=== PATIENT | female | born 1990 | race Caucasian/White ===

== ENCOUNTER 2021-10-20 07:55 | Outpatient (CLI) | payer OTHER, SELFPAY ==
[2021-10-20 10:25] LABS: Cholesterol* 104 mg/dL (90-199); HDL Cholesterol* 23 mg/dL (>=50); LDL Cholesterol Calculated 47 mg/dL (<100); Triglycerides* 171 mg/dL (40-149)
== END 2021-10-20 07:56 | disposition home or self-care (01) ==
LOC: NFLDREF 08:15
PROVIDERS: PCP Family Medicine; Visit Provider Family Medicine
DX: Z13.6 Encounter for screening for cardiovascular disorders (principal)
CPT/HCPCS: 80061

== ENCOUNTER 2024-08-06 18:53 | Emergency (ER) | payer MEDICAID, SELFPAY ==
[2024-08-06 18:59] VITALS: BP 136/87; PULSE 110; RESP 20; TEMP 37; O2SAT 97; BMI 35.7
--- OUTSIDE RECORDS SUMMARY | 2024-08-06 19:01 | XMS_ITS | Clinical Summary ---
Author Organization [facility] [place] [facility] Address [address] [place] [id number] Care Team Providers Care Beam Warper Name Role Phone Patrick Manjarrez MD Unavailable [phone] Stephy Sanderson RN Unavailable [phone] Unavailable [phone] Pcp, No Primary Care Provider Unavailabl e Allergies Active Allergy Reactions Criticality Noted Date Comments Adhesive Tape-Silicones Hives 03/28/2021 once only Cephalexin Hives High 05/02/2020 Clindamycin Hives 04/12/2010 Nsaids (Non-Steroidal Anti-Inflammatory Drug) Other - Describe In Comment Field 02/09/2022 This patient has a history of a Junior-en-Y gastric bypass. AVOID NSAIDs and aspirin due to risk of gastric and/or G-J anastomotic ulcers. If Sandrine must be on short course of NSAIDs or aspirin, use enteric coated if possible and use PPI // Betty Alvarado RN, Bariatric Nurse Clinician, [facility] 02/12/2022. Penicillins Hives 05/27/2005 Medications multivitamin pediatric chewable tabletIndicatio ns:S/P gastric bypass Chew 1 Tablet by mouth two times daily. 0 02/16/2022 Active cyanocobalamin (VITAMIN B12) 1,000 mcg sublingual tabletIndicatio ns:S/P gastric bypass Place 1 Tablet (1,000 mcg) under the tongue once daily. Active calcium citrate-vitamin D3, 315 mg-250 units, (CITRACAL WITH VITAMIN D) 315 mg-6.25 mcg (250 unit) tab tablet Take 2 Tablets by mouth two times daily with meals. 0 03/13/2022 Active cholecalciferol , Vitamin D3, (Vitamin D-3) 5,000 unit tab tablet Take 1 Tablet (5,000 units) by mouth once daily. 0 03/13/2022 Active Active Problems Problem Noted Date Diagnosed Date S/P robotic gastric bypass by Dr. Manjarrez 2 Overview (02/06/2022): Weight 307, BMI 46 Morbid obesity 02/06/2022 Vaginal delivery 10/18/2014 Obesity in , antepartum 10/12/2014 Body mass index of 60 or higher 03/11/2014 Overview (09/28/2014): Overview: BMI 44.8- one hour glucose done Anal fissure 03/28/2012 Leucopenia 12/08/2011 Thrombocytopenia 12/08/2011 GERD (gastroesophageal reflux disease) 0 Insulin resistance 04/01/2009 Neoplasm of uncertain behavior of skin 0 Overview (04/01/2009): lesion on her right shoulder that is slightly less than 1 cm in diameter, light brown in color and scaly feeling. Myopia 04/01/2009 Astigmatism 04/01/2009 Body mass index, pediatric, 85th percentile to less than 95th percentile for age 0911/19/2008 Resolved Problems Problem Noted Date Diagnosed Date Resolved Date , subsequent 09/22/20142014 Overview (10/04/2014): , planned Transfer of care at 36 weeks SS and QS declined BMI 47 History of iron deficiency anemia 2004 Records requested from [facility] [place] 09/22/14 PNL: A neg; Ab neg; Rhogam: 07/29/14; HIV: neg, Hep B: neg, RPR: negative; Rubella Immune; hgb 11.9; plts: 153,000; urine culture: negative; GCT: 135 S/p Tdap 07/29/14 GBS culture 09/27/14: positive; langley sensitive Encounter for screening of mother 03/11/2014 12/01/2014 Overview (09/28/2014): Overview: 03/11/2014 Antepartum Risk Profile: Labor Factors: none. Workplace Factors: none identified. Nutrition Factors: none. Infectious Disease Factors: none identified. Normal , incidental 03/11/2014 09/28/2014 Overview (09/28/2014): Overview: First trimester screening reviewed, patient declined consent at [facility]. Declined flu vaccine Elevated BMI 41.8- one hour GCT done today Had gallbladder removed Cholelithiasis 12/08/2011 03/27/2012 Obstructive jaundice 12/08/2011 013 Gall stones, common bile duct 12/08/2011 03/27/2012 Drug overdose 11/10/2011 03/27/2012 Normal delivery 12/03/2010 03/27/2012 Medical Home 04/17/2010 03/27/2012 Supervision of normal first 04/12/2010 12/03/2010 wound of oral cavity 02/04/2010 013 Muscle contraction headache 04/01/2009 03/27/2012 Cervicalgia 04/01/2009 03/27/2012 SALTER II FRACTURE RT.ANKLE, CLOSED 10/23/2005 03/27/2012 Anemia, iron deficiency 03/05 Immunizations Immunization Administration Dates Next Due DTaP 05/24/1997,10/26/1994,09/01/1993 ,1992 HIB PRP-OMP (PedvaxHIB) 10/26/1994,09/01/1993, Hepatitis A (Peds) 11/19/2008 Hepatitis B (Peds) 12/20/2004,11/05/1995, 996 Human Papilloma Virus Vaccine 08/19/2007, 007,04/19/2006 Influenza, IIV3 (Age >=3 years) 11/21/19 12,12/07/2010,12/05/2009,11/19/2008, 01/08/2008,01/16/2007,04/19/2006 MMR 12/05/2010,05/08/2000,10/26/1994 Meningococcal Vaccine 12/20/2004 Oral Polio Vaccine 05/24/1997,10/26/1994, 993 Tdap 04/28/2018,07/29/2014,12/20/2004 Varicella Vaccine 04/19/2006,10/26/1994 Family History Medical History Relation Name Comments Allergies Brother 1 Asthma Brother 1 Good Health Brother 1 Asthma Brother 2 Good Health Brother 2 Alcohol/Drug Father currently sober Obesity Father Heart Disease Maternal Grandfather 5 5 years old Hyperlipidemia Maternal Grandfather Hypertension Maternal Grandfather Cancer Maternal Grandmother d CA with mets Good Health Mother Obesity Mother Alcohol/Drug Paternal Grandfather liver f ailure Good Health Paternal Grandmother Asthma Sister 1 Good Health Sister 1 Obesity Sister 1 Good Health Sister 2 Good Health Son 1 Relation Name Status Comments Brother 1 Brother 2 Father Alive Maternal Grandfather Maternal Grandmother Mother Alive Paternal Grandfather Paternal Grandmother Alive Sister 1 Sister 2 Son 1 Alive Social History Tobacco Use Types Packs/Day Years Used Date Smoking Tobacco: Never Smokeless Tobacco: Never Tobacco Cessation:Counseling Given: Not Answered Comments:no smoker Alcohol Use Standard Drinks/Week Comments No 0 (1 standard drink = 0.6 oz pur e alcohol) PHQ-2 Answer Date Recorded PHQ-2 TOTAL SCORE 0 07/21/2021 Social Connections Answer Date Recorded Frequency of Communication with Friends and Fami ly Not on file 01/29/2022 Comments No Sex and Gender Information Value Date Recorded Sex Assigned at Not on file Legal Sex Female 5:29 AM COUNTER CHECKER Gender Identity Not on file Sexual Orientation Not on file 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 2014 Term 39w 3d 4.26 kg (9 lb 6.3 oz) M Vag Epidur al Livin g 8 9 Jose Dumer valdez Complications:None Delivery Location:[facility] Last Filed Vital Signs Vital Sign Reading Time Taken Comments Blood Pressure 166/80 02/10/2022 8:25 AM COUNTER CHECKER Pulse 82 02/10/2022 8:25 AM COUNTER CHECKER Temperature 36.7 C (98 F) 02/10/2022 8:25 AM COUNTER CHECKER Respiratory Rate 16 02/10/2022 8:25 AM COUNTER CHECKER Oxygen Saturation 96% 02/10/2022 8:25 AM COUNTER CHECKER Inhaled Oxygen Concentration - - Weight 120.7 kg (266 lb) 03/13/2022 10:00 AM COUNTER CHECKER Height 172.7 cm (5' 7.99) 03/13/2022 10:00 AM C Body Mass Index 40.45 03/13/2022 10:00 AM COUNTER CHECKER Plan of Treatment Health Maintenance Due Date Last Done Comments Pap test for age 21-65 11/12/2020 8, 04/12/2014 [facility] Depression screening for age 12+ 07/21/2022 07/21/2021, 06/29/2021, 05/22/2016 BMI (ht and wt on same day) for age 18+ 03/13/2023 03/13/2022, 02/16/2022, 01/29/2022, Additional history exists COVID-19 vaccine series ( season) 2023 06/09/2020, 05/10/2020 Influenza Vaccine (Season Ended) 2024 11/21/2011, 12/07/2010, 12/05/2009, Additional history exists Tetanus booster 04/28/2028 04/28/2018, 07/03, 12/20/2004 Hepatitis B series for 19+ Completed 12/20, 11/05/1995, 08/28/1995 HIV for age 15-65 Completed 11/21/2011, , 02/09/2009 Hepatitis C screening for age 18-79 Completed 12/08/2011, 02/09/2009 Tdap Completed 04/28/2018, 07/03, 12/20/2004 Pneumococcal series for age 6-49 Aged Out No longer eligible based on patient's age to complete this topic Procedures Procedure Name Priority Date/Time Associated Diagnosis Comments HAND BUNCH MAKER THIN PREP PAP SCREEN IMAGED Routine 11/12/2017 12:00 PM CDT ACUTE HEPATITIS PANEL STAT 12/08/2011 9:40 AM CDT ANTI HIV 1/2 Routine 11/21/2011 10:45 AM CDT Special screening for other specified conditions from Last 3 Months or Most Recently Relevant to Health Maintenance Results * HAND BUNCH MAKER THIN PREP PAP SCREEN IMAGED (11/12/2017 12:00 PM CDT) Case Report Gynecologic Cytology Report Case: [id number] Authorizing Provider: Caryn Barnes PA-C Collected: 11/12/2017 1200 First Screen: Johnny Vazquez Received: 11/14/2017 1215 Specimen: HAND BUNCH MAKER ThinPrep Vial Screening, Cervical/Vaginal 11/24/2017 2:00 PM [facility]T [facility] INTERPRETATION/ RESULT NEGATIVE FOR INTRAEPITHELIAL LESION OR MALIGNANCY (NIL) (none) 11/24/2017 2:00 PM CDT [facility] at 1400 CDT SPECIMEN ADEQUACY Satisfactory for evaluation No endocervical component seen in a patient 11/24/2017 2:00 PM CDT [facility] HPV REQUEST HPV if ASCUS 11/24/2017 2:00 PM CDT [facility] Date of LMP 09/11/2017 11/24/2017 2:00 PM CDT [facility] Last Pap Date 11/24/2017 2:00 PM CDT [facility] Comment:2013 Last Pap Result 8 2:00 PM CDT [facility] Comment:neg Menstrual Status 11/24/2017 2:00 PM CDT [facility] Automated Review Successful 11/24/2017 2:00 PM CDT [facility] Comment:Specimen processed s uccessfully by automated licensed electrician device, ThinPrep Imaging System, [employer] Note The pap test is a screening technique, not a diagnostic procedure. It is used primarily to screen for squamous cancers and precursor lesions. Published studies have shown that it is subject to both false negative and false positive results. The pap test should not be used as the sole means to diagnose or exclude pre-malignant and malignant lesions. Cytology is screened and interpreted at [facility] - [address], [place] [address] and [facility] - [address]; [place] [address] and [facility] - [address]; [place] [address] and [facility] [address]; [place] [address] 11/24/2017 2:00 PM CDT [facility] Other (Cervical/Vagina l) 11/12/2017 12:00 PM CDT 11/14/2017 12:15 PM CDT us June Cameron REEVES PATHOLOGY/CYTOLOGY Final R esult [facility] [address] [place] [address], [place] * ACUTE HEPATITIS PANEL (12/08/2011 9:40 AM CDT) HBSAG Non-reacti ve [facility] IGM ANTI HBC Non-reacti ve [facility] IGM ANTI HAV Non-reacti ve [facility] ANTI HCV Non-reacti ve [facility] Blood specimen (specimen) BLOOD SPECIMEN / Unknown 12/08/2011 9:40 AM CDT 12/08/2011 9:29 AM CDT us Bobby Cage MD SEND OUTS Final Resul t [facility] [place] ZIP [id number] [place] [address] * ANTI HIV 1/2 (11/21/2011 10:45 AM CDT) ANTI HIV 1/2 Non-reacti ve [facility] Blood specimen (specimen) BLOOD SPECIMEN / Unknown 11/21/2011 10:45 AM CDT 11/21/2011 10:35 AM CDT Jo Ann Kelley NP SEND OUTS Final Result [facility] [place]NAL ZIP [id number] [place] [address] from Last 3 Months or Most Recently Relevant to Health Maintenance Insurance [facility] * Guarantor: [employer] Account Type Relation to Patient Date of Phone Billing Address Contract 2004 [address] [place] [address] Advance Directives * Full Code (Latest Code Status on File) Date Activated Date Inactivated Comments 02/09/2022 3:12 PM 02/10/2022 4:22 PM Question Answer Comments Code Status Discussion: Reviewed Preferences * Full Code Date Activated Date Inactivated Comments 02/09/2022 9:48 AM 02/09/2022 3:12 PM Question Answer Comments Code Status Discussion: Not Discussed * Full Code Date Activated Date Inactivated Comments 10/18/2014 11:57 AM 10/20/2014 3:12 PM * Full Code Date Activated Date Inactivated Comments 10/18/2014 4:44 AM 10/18/2014 11:57 AM * Full Code Date Activated Date Inactivated Comments 10/16/2014 12:21 PM 10/16/2014 4:07 PM Care Teams Beam Warper Relationship Specialty Start Date End Date Pcp, No . PCP - General 02/01/22 Patrick Manjarrez MD [address] [address] Consulting Physician Surgery - General 03/28/21 Stephy Sanderson RN [address] [id number] [place] Registered Nurse 03/28/[address] [id number] Insecticide Sprayer/Data Center Project Manager Check Services Clerk 03/28/21
[2024-08-06 19:54] LABS: Lactate* 0.8 mmol/L (0.5-1.9)
[2024-08-06 19:54] LABS: Basophils Absolute Auto 0.03 K/uL (0.00-0.30); Basophils Percent Auto 0.5 % (0.0-3.0); Hematocrit 39.6 % (33.0-51.0); Hemoglobin* 13.1 gm/dL (12.0-16.0); Immature Granulocytes Abs Auto 0.01 K/uL (0.00-0.30); Immature Granulocytes Pct Auto 0.2 %; Lymphocytes Percent Auto 12.2 % (20-44); Mean Corpuscular HGB Conc 33 gm/dL (32-36); Mean Corpuscular Hemoglobin 28 pg (26-34); Mean Corpuscular Volume 86 fL (80-100); Monocytes Percent Auto 7.4 % (0.0-11.0); Neutrophils Percent Auto 76.7 % (42.0-72.0); Platelet Count* 138 K/uL (140-440); RDW Coefficient of Variation % 14.4 % (11.5-15.5); Red Blood Count 4.63 m/uL (4.00-5.20); White Blood Count* 6.62 K/uL (4.50-11.00)
--- NOTE | 2024-08-06 20:00 | ED.ABDPAIN ---
HPI - Abdominal Pain General Date Seen: 08/06/24 Chief Complaint: Post Op Complication Stated Complaint: infected surgery wound Time Seen by Provider: 08/06/24 19:16 Source: patient and family Mode of arrival: ambulatory Limitations: no limitations History of Present Illness HPI narrative: Patient is the 34-year-old female presents here after tubal reversal, that was done in [place] 5 days ago, he has had increased drainage out of her wound, and redness also, she has noted some chills, has no overt fevers or least is not taken her temperature. Pain is 4/10 at rest, and 5/10 when moving, she is currently on clindamycin per this surgery. She has a history of whole body rash to Keflex or amoxicillin. Denies any vaginal discharge, diarrhea, her appetite has been good she is eating and drinking normally, denies any dysuria frequency, no history of cough shortness of breath, sore throat or other symptoms. Related Data Home Medications ?Medication ?Instructions ?Recorded ?Confirmed cholecalciferol (vitamin D3) 125 125 mcg PO QDAY 10/20/21 08/06/24 mcg (5,000 unit) capsule calcium carbonate (Calcium 500) 1,000 mg PO QDAY 11/27/22 08/06/24 multivitamin 1 tab PO QAM 11/27/22 08/06/24 vitamin B complex 1 cap PO QDAY 11/27/22 08/06/24 clindamycin HCl .ROUTE 08/06/24 Allergies Allergy/AdvReac Type Severity Reaction Status Date / Time cephalexin Allergy Severe Hives Verified 11/27/22 10:22 amoxicillin Allergy Intermediate Hives Verified 11/27/22 10:22 Penicillin Allergy Intermediate Hives Uncoded 11/27/22 10:22 Review of Systems Status of ROS Reports: 10 or more systems reviewed and unremarkable except as noted in History and below [facility] Medical History Low HDL (under 40) ?E78.6 - Lipoprotein deficiency (ICD-10) Severe major depression without psychotic features (01/2021) ?F32.2 - Major depressive disorder, single episode, severe without psychotic features (ICD-10) Surgical History History of Junior-en-Y gastric bypass ?Z98.84 - Bariatric surgery status (ICD-10) History of tubal ligation (2019) ?Z98.51 - Tubal ligation status (ICD-10) History of third molar tooth extraction (2009) ?K08.409 - Partial loss of teeth, unspecified cause, unspecified class (ICD-10) History of bladder suspension procedure (2019) ?Z98.890 - Other specified postprocedural states (ICD-10) ?Z87.448 - Personal history of other diseases of urinary system (ICD-10) Family History Maternal Grandmother Breast cancer, Onset Age: 50 Sister Mental disorder Father Mental disorder Maternal Grandfather Myocardial infarction, Onset Age: 50 Social History 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: , 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[employer] , 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 Exercise walks twice a week Non-smoker Rarely consumes alcohol Smoking Status: Never smoker Exam Narrative: Exam Narrative: On examination in room 6 he is in no apparent distress she is pleasant alert speaking to me normally, oropharynx is normal neck is supple hydration status excellent GCS is 15/15, oriented x3, neck is supple no meningismus chest is good air entry bilateral with no wheezing crackles noted heart sounds are normal her abdomen shows a lower Pfannenstiel incision, with some redness around it concerning for some cellulitic type process, she has some discharge onto the 4x4s, bowel sounds are normal, skin reveals no petechiae rashes, her back is nontender her lower leg he normally. Const: Vital Signs, click to edit/add: Vital Signs - 24 hr 08/06/24 18:59 Temperature 98.6 F Pulse Rate [Pulse Oximeter] 110 H Respiratory Rate 20 Blood Pressure [Ri ght Upper Arm] 136/87 Pulse Oximetry 97 Oxygen Delivery Me thod Room Air Documenting provider has reviewed patient's vital signs: yes Course Course ED Course: Discussed with patient, we did do swab of purulent for mood came out of the left side of her incision, this will be sent to wait for culture. I did talk to from OBGYN, she recommended that she be started on Bactrim also in continue the clindamycin that she was here in follow-up in clinic, back here if worsening, this seems like more of superficial postoperative issue. Vital Signs Vital signs: Initial Vital Signs Temperature 98.6 F 08/06/24 18:59 Temperature Source Oral 08/06/24 18:59 Pulse Rate 110 H 08/06/24 18:59 Respiratory Rate 20 08/06/24 18:59 Blood Pressure 136/87 08/06/24 18:59 Blood Pressure Mean 103 08/06/24 18:59 Blood Pressure Position Sitting 08/06/24 18:59 Pulse Oximetry 97 08/06/24 18:59 Oxygen Delivery Method Room Air 08/06/24 18:59 Vital Signs Temperature 98.6 F 08/06/24 18:59 Pulse Rate 110 H 08/06/24 18:59 Respiratory Rate 20 08/06/24 18:59 Blood Pressure 136/87 08/06/24 18:59 Pulse Oximetry 97 08/06/24 18:59 Oxygen Delivery Method Room Air 08/06/24 18:59 Temperature 98.6 F 08/06/24 18:59 Pulse Rate 110 H 08/06/24 18:59 Respiratory Rate 20 08/06/24 18:59 Blood Pressure 136/87 08/06/24 18:59 Pulse Oximetry 97 08/06/24 18:59 Oxygen Delivery Method Room Air 08/06/24 18:59 Medications Administered Medications: Discontinued Medications Generic Name Dose Route Start Last Admin Trade Name Freq PRN Reason Stop Dose Admin Sodium Chloride 1,000 mls @ 1,000 mls/hr 08/06/24 19:30 08/06/24 20:08 0.9 % Sodium Chloride 1000 Ml IV 08/06/24 20:29 1,000 mls/hr .Q1H AIRAM Administration MDM - Abdominal Pain MDM Narrative Medical decision making narrative: Concerning for possible intra-abdominal versus skin infection, I discussed with her this. We will start with laboratory work and CT. May need to involve OBGYN. Differential Diagnosis Differential diagnosis: Likely abdominal pain, acute appendicitis, calculus of kidney, constipation, diverticulitis, endometriosis, gastroenteritis, pancreatitis and small bowel obstruction Medical Records Attestation: I reviewed the patient's medical records. Lab Data Attestation: I reviewed the patient's lab results. Labs: Lab Results 08/06/24 08/06/24 08/06/24 Range/Units 19:15 19:45 19:50 WBC 6.62 (4.50-11.00) K/uL RBC 4.63 (4.00-5.20) m/uL Hgb 13.1 (12.0-16.0) gm/dL Hct 39.6 (33.0-51.0) % MCV 86 (80-100) fL MCH 28 (26-34) pg MCHC 33 (32-36) gm/dL RDW Coeff of Christina 14.4 (11.5-15.5) % Plt Count 138 L (140-440) K/uL Neut % (Auto) 76.7 H (42.0-72.0) % Lymph % (Auto) 12.2 L (20-44) % [place] % (Auto) 7.4 (0.0-11.0) % Eos % (Auto) 3.0 (0.0-7.0) % Baso % (Auto) 0.5 (0.0-3.0) % Neut # (Auto) 5.10 (1.7-7.0) K/uL Lymph # (Auto) 0.80 L (0.90-2.90) K/uL [place] # (Auto) 0.50 (0.00-0.90) K/UL Eos # (Auto) 0.20 (0.00-0.50) K/uL Baso # (Auto) 0.03 (0.00-0.30) K/uL Abs Immat Gran (auto) 0.01 (0.00-0.30) K/uL Imm/Tot Granulo (auto) 0.2 % Sodium 137 (135-149) mmol/L Potassium 4.0 (3.6-5.1) mmol/L Chloride 106 (96-114) mmol/L Carbon Dioxide 24 (20-32) mmol/L Anion Gap 7 (7-15) mEq/L BUN 13 (5-24) mg/dL Creatinine 0.8 (0.5-1.5) mg/dL Estimated Creat Clear 105.51 Estimated GFR 100 ml/min Glucose 97 (60-115) mg/dL Lactate 0.8 (0.5-1.9) mmol/L Calcium 9.0 (8.4-10.6) mg/dL Total Bilirubin 1.1 (0.1-1.5) mg/dL Direct Bilirubin 0.1 (0.0-0.5) mg/dL AST 30 (12-35) U/L ALT 30 (4-35) U/L Alkaline Phosphatase 60 (40-150) U/L C-Reactive Protein 14.1 H (0.5-1.0) mg/dL Total Protein 7.2 (6.0-8.3) g/dL Albumin 4.2 (3.3-5.0) g/dL Procalcitonin 0.04 (<0.50) ng/mL HCG, Qual Negative (Negative) Urine Color Yellow (Yellow) Urine Appearance Clear (Clear) Urine pH 6.0 (5.0-8.5) Ur Specific [place] <= 1.005 (1.000-1.030) Urine Protein Negative (Negative) Urine Glucose (UA) Negative (Negative) Urine Ketones Negative (Negative) Urine Blood Trace-intact A (Negative) Urine Nitrite Negative (Negative) Urine Bilirubin Negative (Negative) Urine Urobilinogen 0.2 (0.2-1.0) Ur Leukocyte Esterase Negative (Negative) Urine RBC 0-2 (0-2) Urine WBC 0-2 (0-5) Ur Squamous Epith Cells None (None-Few) Urine Bacteria None (None) SARS-CoV-2 (PCR) (Negative) Influenza Type A (PCR) (Negative) Influenza Type B (PCR) (Negative) RSV (PCR) (Negative) 08/06/24 Range/Units Unknown WBC (4.50-11.00) K/uL RBC (4.00-5.20) m/uL Hgb (12.0-16.0) gm/dL Hct (33.0-51.0) % MCV (80-100) fL MCH (26-34) pg MCHC (32-36) gm/dL RDW Coeff of Christina (11.5-15.5) % Plt Count (140-440) K/uL Neut % (Auto) (42.0-72.0) % Lymph % (Auto) (20-44) % [place] % (Auto) (0.0-11.0) % Eos % (Auto) (0.0-7.0) % Baso % (Auto) (0.0-3.0) % Neut # (Auto) (1.7-7.0) K/uL Lymph # (Auto) (0.90-2.90) K/uL [place] # (Auto) (0.00-0.90) K/UL Eos # (Auto) (0.00-0.50) K/uL Baso # (Auto) (0.00-0.30) K/uL Abs Immat Gran (auto) (0.00-0.30) K/uL Imm/Tot Granulo (auto) % Sodium (135-149) mmol/L Potassium (3.6-5.1) mmol/L Chloride (96-114) mmol/L Carbon Dioxide (20-32) mmol/L Anion Gap (7-15) mEq/L BUN (5-24) mg/dL Creatinine (0.5-1.5) mg/dL Estimated Creat Clear Estimated GFR ml/min Glucose (60-115) mg/dL Lactate (0.5-1.9) mmol/L Calcium (8.4-10.6) mg/dL Total Bilirubin (0.1-1.5) mg/dL Direct Bilirubin (0.0-0.5) mg/dL AST (12-35) U/L ALT (4-35) U/L Alkaline Phosphatase (40-150) U/L C-Reactive Protein (0.5-1.0) mg/dL Total Protein (6.0-8.3) g/dL Albumin (3.3-5.0) g/dL Procalcitonin (<0.50) ng/mL HCG, Qual (Negative) Urine Color (Yellow) Urine Appearance (Clear) Urine pH (5.0-8.5) Ur Specific [place] (1.000-1.030) Urine Protein (Negative) Urine Glucose (UA) (Negative) Urine Ketones (Negative) Urine Blood (Negative) Urine Nitrite (Negative) Urine Bilirubin (Negative) Urine Urobilinogen (0.2-1.0) Ur Leukocyte Esterase (Negative) Urine RBC (0-2) Urine WBC (0-5) Ur Squamous Epith Cells (None-Few) Urine Bacteria (None) SARS-CoV-2 (PCR) Negative SARS-CoV-2 (Negative) Influenza Type A (PCR) Negative PCR FLU A (Negative) Influenza Type B (PCR) Negative PCR FLU B (Negative) RSV (PCR) Negative PCR RSV (Negative) Imaging Data CT scan - abdomen: Radiologist's impression: Patient: SANDRINE VALDOVINOS Facility:?[facility] Patient ID:?[id number] Site Patient ID:?[id number]. Site :?[id number] Study:?CT-Abdomen/Pelvis W ISOVUE 370-08/06/2024 9:23:08 PM Ordering Physician:Ailyn Avendano Final Report: INDICATION: Postop wound infection after tubal reversal. TECHNIQUE: CT abdomen and pelvis acquired with 118 cc Isovue 370 IV contrast. COMPARISON: None. FINDINGS: Lower chest: Unremarkable. Liver: Unremarkable. Normal in size and attenuation. No suspicious masses. Gallbladder and bile ducts: Cholecystectomy. No biliary dilatation. Pancreas: Unremarkable. No mass or inflammation. Spleen: Splenules. Splenomegaly measuring up to 19.5 cm (). No masses. Adrenal glands: Unremarkable. No nodules. Kidneys: Unremarkable. No suspicious masses, stones, or hydronephrosis. GI tract: Chronic postsurgical findings consistent with Junior-en-Y bariatric surgery. Normal in caliber. No sign of mass or inflammation. Normal appendix. Vasculature: Dilated appearance of the portal and splenic veins. Abdominal aorta is normal in caliber. Mesenteric arteries are patent. Lymph nodes: No lymphadenopathy. Peritoneum/Abdominal Wall: Anterior pelvic superficial soft tissue inflammatory changes and emphysema, likely sequelae of recent surgery. No associated focal fluid collection identified. No pneumoperitoneum. Pelvis: Bladder is unremarkable. Reproductive organs are unremarkable. Bones: Unremarkable for age. IMPRESSION: 1. Anterior pelvic superficial soft tissue swelling and emphysema, likely related to recent surgery. No focal fluid collection or other definite complication identified. 2. Dilated portal and splenic veins with splenomegaly measuring up to 19.5 cm. These findings are indirectly suggestive of portal hypertension. Outpatient Doppler ultrasound exam could be performed for more definitive evaluation, if clinically indicated. Please note that all CT scans at this facility use dose modulation, iterative reconstruction, and/or weight-based dosing when appropriate to reduce radiation dose to as low as reasonably achievable. Dictated by Fernando Velázquez MD @ 08/06/2024 10:00:20 PM (Electronic Signature) Discharge Plan Discharge Clinical Impression: Postoperative abscess involving suture Patient Disposition: Home w/ Parent or Adult Condition: Stable Instructions: Wound Infection (DC), Surgical Site Infections (ED) Additional Instructions: Home rest continue clindamycin, start Bactrim, call tomorrow to [facility] and give her follow-up appointment, back to the ER if increasing fevers chills worsening abdominal pain. Change dressing daily, Activity Level: Light activity Discharge Diet: Regular Prescriptions: No Action cholecalciferol (vitamin D3) 125 mcg (5,000 unit) capsule 125 mcg PO QDAY vitamin B complex Capsule 1 cap PO QDAY multivitamin Tablet 1 tab PO QAM calcium carbonate [Calcium 500] 500 mg calcium (1,250 mg) tablet,chewable 1,000 mg PO QDAY clindamycin HCl .ROUTE Follow Up/Referrals: Wendi Rivera MD [Primary Care Provider, Family Practice] Gavi Bah MD [Staff Physician, INTERNATIONAL MANAGER] [facility] Al[facility]: [facility]
[2024-08-06 20:02] LABS: Appearance Urine Clear (Clear); Bilirubin Urine Negative (Negative); Blood Urine Trace-intact (Negative); Color Urine Yellow (Yellow); Glucose Urine Negative (Negative); Ketones Urine Negative (Negative); Leukocyte Esterase Urine Negative (Negative); Nitrite Urine Negative (Negative); Protein Urine Negative (Negative); Specific Gravity Urine <= 1.005 (1.000-1.030); Urobilinogen Urine 0.2 (0.2-1.0)
[2024-08-06] MEDS: 0.9 % SODIUM CHLORIDE 1000 ml 1,000 ML IV (20:08)
[2024-08-06 20:10] LABS: Albumin* 4.2 g/dL (3.3-5.0); Chloride* 106 mmol/L (96-114)
[2024-08-06 20:11] LABS: Sodium* 137 mmol/L (135-149)
[2024-08-06 20:13] LABS: Blood Urea Nitrogen* 13 mg/dL (5-24); Creatinine* 0.8 mg/dL (0.5-1.5); Est. Creatinine Clearance* 105.51; Estimated Glomerular Filt Rate 100 ml/min
[2024-08-06 20:14] LABS: Alanine Aminotransferase* 30 U/L (4-35); Alkaline Phosphatase* 60 U/L (40-150); Anion Gap 7 mEq/L (7-15); Aspartate Amino Transferase* 30 U/L (12-35); Bilirubin Direct* 0.1 mg/dL (0.0-0.5); Bilirubin Total* 1.1 mg/dL (0.1-1.5); Carbon Dioxide* 24 mmol/L (20-32); Glucose* 97 mg/dL (60-115); Total Protein* 7.2 g/dL (6.0-8.3)
[2024-08-06 20:15] LABS: RBC Urine 0-2 (0-2); WBC Urine 0-2 (0-5)
[2024-08-06 20:16] LABS: Slide Review Reflex No
[2024-08-06 20:30] LABS: C Reactive Protein* 14.1 mg/dL (0.5-1.0)
[2024-08-06 20:31] LABS: Procalcitonin* 0.04 ng/mL (<0.50)
[2024-08-06 20:33] LABS: HCG Qualitative Serum* Negative (Negative)
--- NOTE | 2024-08-06 20:43 | CRLHL7_ITS ---
For Patients: As a result of the Century Cures Act, medical imaging exams and procedure reports are released immediately into your electronic medical record. You may view this report before your referring provider. If you have questions, please contact your health care provider. INDICATION: Postop wound infection after tubal reversal. TECHNIQUE: CT abdomen and pelvis acquired with 118 cc Isovue 370 IV contrast. COMPARISON: None. FINDINGS: Lower chest: Unremarkable. Liver: Unremarkable. Normal in size and attenuation. No suspicious masses. Gallbladder and bile ducts: Cholecystectomy. No biliary dilatation. Pancreas: Unremarkable. No mass or inflammation. Spleen: Splenules. Splenomegaly measuring up to 19.5 cm (). No masses. Adrenal glands: Unremarkable. No nodules. Kidneys: Unremarkable. No suspicious masses, stones, or hydronephrosis. GI tract: Chronic postsurgical findings consistent with Junior-en-Y bariatric surgery. Normal in caliber. No sign of mass or inflammation. Normal appendix. Vasculature: Dilated appearance of the portal and splenic veins. Abdominal aorta is normal in caliber. Mesenteric arteries are patent. Lymph nodes: No lymphadenopathy. Peritoneum/Abdominal Wall: Anterior pelvic superficial soft tissue inflammatory changes and emphysema, likely sequelae of recent surgery. No associated focal fluid collection identified. No pneumoperitoneum. Pelvis: Bladder is unremarkable. Reproductive organs are unremarkable. Bones: Unremarkable for age. IMPRESSION: 1. Anterior pelvic superficial soft tissue swelling and emphysema, likely related to recent surgery. No focal fluid collection or other definite complication identified. 2. Dilated portal and splenic veins with splenomegaly measuring up to 19.5 cm. These findings are indirectly suggestive of portal hypertension. Outpatient Doppler ultrasound exam could be performed for more definitive evaluation, if clinically indicated. Please note that all CT scans at this facility use dose modulation, iterative reconstruction, and/or weight-based dosing when appropriate to reduce radiation dose to as low as reasonably achievable. Dictated by Fernando Velázquez MD @ 08/06/2024 10:00:20 PM (Electronically Signed)
[2024-08-06 20:50] LABS: PCR FLU A Negative PCR FLU A (Negative); PCR FLU B Negative PCR FLU B (Negative); PCR RSV Negative PCR RSV (Negative); SARS PCR* Negative SARS-CoV-2 (Negative)
[2024-08-06 22:38] VITALS: RESP 20
== END 2024-08-06 22:40 | disposition home or self-care (01) ==
PROVIDERS: Emergency Provider Family Medicine; PCP Family Medicine
DX: L02.211 Cutaneous abscess of abdominal wall (principal); T81.41XA Infection following a procedure, superficial incisional surgical site, initial encounter
CPT/HCPCS: 36415; 74177; 80048; 80076; 81001; 83605; 84145; 84703; 85025; 86140; 87040; 87070; 87631; 99284; 99285; J7030; Q9967

== ENCOUNTER 2024-08-07 11:39 | Day surgery (SDC) | payer OTHER, SELFPAY ==
[2024-08-07] VITALS (20 sets, daily range): BP systolic 120–136; BP diastolic 66–89; PULSE 70–100; RESP 14–16; TEMP 36.1–36.5; O2SAT 92–100; BMI 36.0
[2024-08-07] MEDS: LACTATED RINGERS 1000 ML 1,000 ML 100 ML IV ×2 (11:45→14:30)
[2024-08-07 11:52] LABS: Ur HCG Qualitative* Negative (Negative)
[2024-08-07] MEDS: SODIUM CHLORIDE 0.9 % (FLUSH) 10 ML SYRINGE IVF (12:15)
[2024-08-07 12:28] LABS: Basophils Absolute Auto 0.03 K/uL (0.00-0.30); Basophils Percent Auto 0.7 % (0.0-3.0); Eosinophils Absolute Auto 0.23 K/uL (0.00-0.50); Hematocrit 37.4 % (33.0-51.0); Hemoglobin* 12.5 gm/dL (12.0-16.0); Lymphocytes Percent Auto 15.2 % (20-44); Mean Corpuscular HGB Conc 33 gm/dL (32-36); Mean Corpuscular Hemoglobin 29 pg (26-34); Mean Corpuscular Volume 85 fL (80-100); Monocytes Percent Auto 8.3 % (0.0-11.0); Neutrophils Absolute Auto 3.26 K/uL (1.7-7.0); Neutrophils Percent Auto 70.8 % (42.0-72.0); Platelet Count* 149 K/uL (140-440); RDW Coefficient of Variation % 14.3 % (11.5-15.5); Red Blood Count 4.38 m/uL (4.00-5.20)
[2024-08-07 12:32] LABS: Slide Review Reflex No
[2024-08-07] MEDS: CLINDAMYCIN 900 MG/50 ML-D5W 900 MG/50 ML PIGGYBACK 100 MG IVPB ×2 (12:41→20:26)
--- NOTE | 2024-08-07 13:31 | P.ANES_ITS ---
Anesthesia Charges Start Date/Time Anesthesia Start Date: 08/07/24 Anesthesia Start Time: 12:23 Stop Date/Time Anesthesia Stop Date: 08/07/24 Anesthesia Stop Time: 13:22 Coding CPT Codes CPT Codes: ANESTH SKIN EXT/PER/ATRUNK - 04821 ([id number]) P2 - PATIENT W/MILD SYST DISEASE, QK - PATROL COMMUNITY SERVICE OFFICER 2-4 CNCRNT ANES PROC, QX - DEVELOPMENTAL SERVICES WORKER SVC W/ MD MED DIRECTION
--- NOTE | 2024-08-07 13:31 | W.ANESCHARGE ---
Anesthesia Charges Start Date/Time Anesthesia Start Date: 08/07/24 Anesthesia Start Time: 12:23 Stop Date/Time Anesthesia Stop Date: 08/07/24 Anesthesia Stop Time: 13:22 Coding CPT Codes CPT Codes: ANESTH SKIN EXT/PER/ATRUNK - 36730 ([id number]) P2 - PATIENT W/MILD SYST DISEASE, QK - CUSHION GUM APPLICATOR 2-4 CNCRNT ANES PROC, QX - GLOBAL SECURITY ARCHITECT SVC W/ MD MED DIRECTION
[2024-08-07] MEDS: fentaNYL 100 MCG/2 ML inj 50 MCG IVP ×2 (13:35→13:40)
--- NOTE | 2024-08-07 13:38 | P.ANES_ITS ---
Anesthesia Charges Start Date/Time Anesthesia Start Date: 08/07/24 Anesthesia Start Time: 12:23 Stop Date/Time Anesthesia Stop Date: 08/07/24 Anesthesia Stop Time: 13:22 Coding CPT Codes CPT Codes: ANESTH SKIN EXT/PER/ATRUNK - 25976 ([id number]) QK - APPLIED COMPUTER SCIENCE PROFESSOR 2-4 CNCRNT ANES PROC, QX - WOOD TREATING INSPECTOR SVC W/ MD MED DIRECTION, P2 - PATIENT W/MILD SYST DISEASE
--- NOTE | 2024-08-07 13:38 | W.ANESCHARGE ---
Anesthesia Charges Start Date/Time Anesthesia Start Date: 08/07/24 Anesthesia Start Time: 12:23 Stop Date/Time Anesthesia Stop Date: 08/07/24 Anesthesia Stop Time: 13:22 Coding CPT Codes CPT Codes: ANESTH SKIN EXT/PER/ATRUNK - 96459 ([id number]) QK - SETTLEMENT TECHNICIAN 2-4 CNCRNT ANES PROC, QX - IN CLASS SPECIAL EDUCATION TEACHER SVC W/ MD MED DIRECTION, P2 - PATIENT W/MILD SYST DISEASE
--- NOTE | 2024-08-07 14:25 | P.GYNPRC_ITS ---
Procedure Note Time Seen by Provider: 12:00 Date of procedure: 08/07/24 [address] [facility] bill your pro fee for this procedure?: Yes Pre-op diagnosis: 1. Surgical site infection Post-op diagnosis: 1. Surgical site infection Procedure: 1. Wound debridement Anesthesia: GETA Complications: None Surgeon: Ashley Valentine MD Estimated blood loss (mL): 4 IV fluids (mL): 900 Urine Output (mL): 150 Pathology: none sent Condition: stable Disposition: floor Findings: Large area of erythema and inductation above the mini-laparotomy. Warm. The sutures are visible, appears to be a monofilament (prolene or PDS). Copious amount of malodorous discharge was expressed after sutures were cut. Two layers of subcutaneous sutures noted. Thankfully, fascia was intact and appears healthy. Scattered brown and perry slough. Small amount of black, leathery tissue. Defect size: 6.5 cm long and 6 cm deep Procedure Description: DESCRIPTION OF PROCEDURE: The patient was taken to the operating room where general anesthesia was adm inistered. She was prepared and draped in normal sterile fashion in the supine position. A surgical time-out was performed with the entire operative staff per protocol. Perioperative antibiotics were given and pneumoboots were placed and activated. EUA revealed the above findings. Preoperative antibiotics: Gentamicin 5 mg/kg Q24 hours, clindamycin 900 mg Q8 hours Risk seen sutures in the skin and subcutaneous tissue was removed with suture scissors. Copious amount of irrigation performed with normal saline. Using sharp debridement, slough and necrotic tissue was carefully excised until viable tissue was reached. Hemostasis was achieved using electrocautery. The wound was irrigated with normal saline again. Wet to dry dressing applied in a nonocclusive manner. Bladder was drained with straight cath. The patient tolerated the procedure well. Sponge, lap and needle counts were correct x 2. The patient was taken to the recovery room in stable condition. Plan: IV antibiotics for 24 hours. Will discharge home on p.o. antibiotic. She can finish her Bactrim that was started yesterday. Would culture still pending. Antibiotics might change depending on wound culture. We will to wet to dry dressing q.12 hours Consider follow-up with [facility] Ashley Valentine MD Attending Physician Department of Obstetrics and Gynecology [facility]
[2024-08-07] MEDS: OXYCODONE 5 MG TABLET PO ×3 (15:50→23:27)
[2024-08-07] MEDS: ACETAMINOPHEN 500 MG TABLET 1000 MG PO ×2 (15:50→23:27)
--- NOTE | 2024-08-07 22:10 | PC.NURSE ---
Patient received wound care and antibiotics as ordered. Patient is tolerating regular diet and PIV is SL. Patient up independently in room. Patient is utilizing prn pain medications for pain management.
[2024-08-08 03:00] VITALS: BP 129/82; PULSE 67; RESP 15; TEMP 36.2; O2SAT 97
[2024-08-08] MEDS: CLINDAMYCIN 900 MG/50 ML-D5W 900 MG/50 ML PIGGYBACK 100 MG IVPB ×2 (04:09→11:49)
[2024-08-08] MEDS: OXYCODONE 5 MG TABLET PO ×3 (04:13→13:21)
[2024-08-08] MEDS: SIMETHICONE 80 MG TAB.CHEW PO (05:18)
--- NOTE | 2024-08-08 06:43 | PC.NURSE ---
End of shift report [id number]: Pleasant and cooperative with cares. Pain to abdomen managed well with PRN oxycodone, PRN tylenol and ice pack. Dressing clean, dry and intact. Bowel sounds active x 4 quadrants, denies any nausea. Transfers independently in room. At 0425 patient reporting increased gas and feeling bloated, new order for PRN simethicone, medication administered and effective.
[2024-08-08 07:00] VITALS: BP 134/93; PULSE 85; RESP 16; TEMP 36.7; O2SAT 98
[2024-08-08] MEDS: ACETAMINOPHEN 500 MG TABLET 1000 MG PO (09:08)
--- NOTE | 2024-08-08 10:03 | PM.GYNPNPO ---
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 Postoperative Procedures: Procedures Operation Date: 08/07/24 12:00 Actual Procedure Side Surgeon p Surgical Wound Exploration Not Applicable Ashley Gerardo Valentine MD Time Spent With Patient Time: Total time spent is greater than 50% in coordination of care (as documented) at patient's floor/unit and/or counseling patient: STEAMTABLE ATTEND[employer]ILROAD- PN:Subj Post-Op Subjective Post Operative Details: Post-operative day number []: status post [] STEAMTABLE ATTEND[employer] RAILROAD-PN: Obj Exam Physical Exam: Vital signs: Temp Pulse Resp BP Pulse Ox O2 Del Method 98.0 F 85 16 134/93 H 98 Room Air 08/08/24 07:00 08/08/24 07:00 08/08/24 07:00 08/08/24 07:00 08/08/24 07:00 08/08/24 07:00 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
--- NOTE | 2024-08-08 10:31 | PM.GYNDS1 ---
DS: Providers Provider Time Seen by Provider: 10:31 Date Seen: 08/08/24 Primary care physician: Wendi Rivera MD Attending Physician on discharge: Ashley Valentine MD DISPLAY AND BANNER DESIGNER-Discharge Summary Hospital Course Hospital Course Narrative: Patient is a 34 year old admitted on 08/07/24 for wound infection. She underwent surgical wound debridement in the OR on 08/07/24 with return of large volume purulent fluid. Intraoperative findings were notable for large wound infection with abscess, fascia fortunately was intact. Patient was initiated on IV antibiotics with gentamicin and clindamycin in the perioperative period. Post-operative course has been uneventful. VS reviewed and are within normal limits, afebrile. Notes her superficial wound erythema is much improved. Pain is overall well controlled on NSAIDs, tylenol and oxycodone 5mg about every 5 hours overnight. Pain is at its worst with dressing changes, occurring BID with wet to dry dressings. She notes her evening dressing change last night was very difficult. Her is agreebale to helping with dressing changes, the couple also has 2 family members that are nurses who are willing to assist. She is tolerating a regular diet without nausea/vomiting. Denies fevers/chills. Passing flatus, no BM. Voiding spontaneously. Ambulates without difficulty. Time Spent with Patient Time attestation: Total time spent providing and/or coordinating discharge services: Time spent: Greater than 30 minutes DISPLAY AND BANNER DESIGNER - Exam Physical Exam: Vital signs: Temp Pulse Resp BP Pulse Ox O2 Del Method 98.0 F 85 16 134/93 H 98 Room Air 08/08/24 07:00 08/08/24 07:00 08/08/24 07:00 08/08/24 07:00 08/08/24 07:00 08/08/24 07:00 Narrative: General: Alert and oriented, in no acute distress Pysch: Appropriate mood and affect Abdomen: Soft, non-distended. Tender to palpation in lower quadrants, appropriate for post-op state and in setting of wound infection. No rebound/guarding. Erythema superior to the incision is improved. Patient received pre-treatment with oxycodone where packing was removed 1 hour later. Scant exudate noted on superior wound bed, gently debrided with Q-tip. Tissue is pink and well perfused. No dusky appearance, no purulence. Depth of incision is about 6cm, fascia palpates intact throughout. Wet to dry dressing to be reapplied with beside RN and patient family (due to arrive shortly) . DISPLAY AND BANNER DESIGNER - DS: Data Data Completed and Pending Labs on day of discharge: Labs from last 24 hours 08/07/24 08/07/24 08/07/24 12:09 12:05 11:44 WBC 4.60 RBC 4.38 Hgb 12.5 Hct 37.4 MCV 85 MCH 29 MCHC 33 RDW Coeff of Christina 14.3 Plt Count 149 Neut % (Auto) 70.8 Lymph % (Auto) 15.2 L [place] % (Auto) 8.3 Eos % (Auto) 5.0 Baso % (Auto) 0.7 Neut # (Auto) 3.26 Lymph # (Auto) 0.70 L [place] # (Auto) 0.40 Eos # (Auto) 0.23 Baso # (Auto) 0.03 Abs Immat Gran (auto) 0.00 Imm/Tot Granulo (auto) 0.0 Urine HCG, Qual Negative Blood Type A Negative Antibody Screen NEGATIVE Procedures Procedures: Procedures Operation Date: 08/07/24 12:00 Actual Procedure Side Surgeon p Surgical Wound Exploration Not Applicable Ashley Gerardo Valentine MD Discharge Plan Discharge Disposition: Home w/ Parent or Adult Discharging Surgeon: Crista Hamilton Follow-Up Appointment: Clinic followup within 1 week in [facility], wound clinic consult Prescriptions: New oxycodone 5 mg Tablet 5 mg PO Q4H PRN (Reason: 4 OR GREATER ON PAIN SCALE) Qty: 15 0RF Continued cholecalciferol (vitamin D3) 125 mcg (5,000 unit) capsule 125 mcg PO QDAY vitamin B complex Capsule 1 cap PO QDAY multivitamin Tablet 1 tab PO QAM calcium carbonate [Calcium 500] 500 mg calcium (1,250 mg) tablet,chewable 1,000 mg PO QDAY sulfamethoxazole-trimethoprim [Bactrim] 400-80 mg tablet 1 tab PO BID clindamycin HCl .Route Discharge Diet: Regular Patient Instructions: CRE (Carbapenem Resistant Enterobacteriaceae) (DC), Karen Auris Infection (DC) Additional Instructions: Continue twice daily wet-to-dry dressing changes. Pain control with ibuprofen 600mg every 6 hours as needed, tylenol 1000mg every 6 hours as needed and oxycodone 5mg every 4-6 hours as needed for breakthrough pain. Consider taking a dose of pain medicine 1 hour prior to wound dressing changes. A referral has been placed to wound care clinic. Please expect a call from them on Saturday. If you do not hear from them by Saturday around noon, please call to clinic the schedule. Recommend follow up with Wound Clinic and/or in [facility] within 1 week of dismissal. Please call with worsening pain, fevers/chills, nausea/vomiting, worsening erythema, purulent drainage from the incision. Follow-up: Wendi Rivera MD [Primary Care Provider, [facility]] Discharge Orders: Discharge Order (Routine); Ordered 08/08/24 Ordered By: Crista Hamilton
--- NOTE | 2024-08-08 14:04 | PC.NURSE ---
Discharge: patient a/o x4, VSS, on RA, afebrile this shift. Patient tolerating a reg. diet. Patient denies N/V/SOB and rates pain 6/10. PRN oxy and tylenol administered prior to dressing change. Patient tolerated dressing changes well. Patient up to the BR indep and reports passing gas. Active ice to op site. Patient discharged to home after last dose of antibiotics. Patients IV removed tip intact. Patient signed discharge instructions and verbalized understanding of instructions. Supplies for dressing change sent home with patient. Nurse educated and demonstrated how to perform dressing change. Patient and fiancee verbalized that they felt confident and comfortable to complete 2xdaily dressing changes. Patient and fiancee did not have any further questions prior to discharge.
== END 2024-08-08 13:51 | disposition home or self-care (01) ==
LOC: OR 11:43 → MEDSURG 14:08
PROVIDERS: PCP Family Medicine; Visit Provider Obstetrics & Gynecology
PROC: (CPT 58605; principal; 2024-08-07 12:00)
DX: T81.41XA Infection following a procedure, superficial incisional surgical site, initial encounter (principal); L02.211 Cutaneous abscess of abdominal wall
CPT/HCPCS: 11042; 00400; 36415; 81025; 85025; 86850; 86900; 86901; A9270; J0330; J0736; J1100; J1171; J1580; J1630; J2405; J2704; J3010; J3490; J7120

== ENCOUNTER 2024-08-10 10:13 | Emergency (ER) | payer MEDICAID, OTHER, SELFPAY ==
--- OUTSIDE RECORDS SUMMARY | 2024-08-10 10:15 | XMS_ITS | Clinical Summary ---
Author Organization [facility] Address [address] [place] [address] Care Team Providers Care Cake Mixer Name Role Phone Patrick Manjarrez MD Unavailable [phone] Stephy Sanderson RN Unavailable [phone] Unavailable [phone] Pcp, No Primary Care Provider Unavailabl e [...] // Betty Alvarado RN, Bariatric Nurse Clinician, [facility] Weight Management 02/12/2022. Penicillins Hives 05/27/2005 [...] iron deficiency anemia 2004 Records requested from [facility] 09/22/14 PNL: A neg; Ab neg; Rhogam: [...] reviewed, patient declined consent at [facility]. 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 Comments:Passed [place] hearing test. 2014 Term 39w 3d 4.26 kg (9 lb 6.3 oz) M Vag Epidur al Livin g 8 9 Jose Dumer valdez Complications:None Delivery Location:[facility] Last Filed Vital Signs Vital Sign Reading Time Taken Comments Blood Pressure 166/80 02/10/2022 8:25 AM READING INTERVENTION TEACHER Pulse 82 02/10/2022 8:25 AM READING INTERVENTION TEACHER Temperature 36.7 C (98 F) 02/10/2022 8:25 AM READING INTERVENTION TEACHER Respiratory Rate 16 02/10/2022 8:25 AM READING INTERVENTION TEACHER Oxygen Saturation 96% 02/10/2022 8:25 AM READING INTERVENTION TEACHER Inhaled Oxygen Concentration - - Weight 120.7 kg (266 lb) 03/13/2022 10:00 AM READING INTERVENTION TEACHER Height 172.7 cm (5' 7.99) 03/13/2022 10:00 AM C Body Mass Index 40.45 03/13/2022 10:00 AM READING INTERVENTION TEACHER Plan of Treatment Health Maintenance Due Date Last Done Comments Pap test for age 21-65 11/12/2020 8, 04/12/2014 [facility] Depression screening for age 12+ 07/21/2022 [...] Procedure Name Priority Date/Time Associated Diagnosis Comments MUSIC REHABILITATION THERAPIST THIN PREP PAP SCREEN IMAGED Routine 11/12/2017 12:00 PM CDT ACUTE HEPATITIS PANEL STAT 12/08/2011 9:40 AM CDT ANTI HIV 1/2 Routine 11/21/2011 10:45 AM CDT Special screening for other specified conditions from Last 3 Months or Most Recently Relevant to Health Maintenance Results * MUSIC REHABILITATION THERAPIST THIN PREP PAP SCREEN IMAGED (11/12/2017 12:00 PM CDT) Case Report Gynecologic Cytology Report Case: [id number] Authorizing Provider: Caryn Barnes PA-C Collected: 11/12/2017 1200 First Screen: Johnny Vazquez Received: 11/14/2017 1215 Specimen: MUSIC REHABILITATION THERAPIST ThinPrep Vial Screening, Cervical/Vaginal 11/24/2017 2:00 PM CDT [facility] INTERPRETATION/ RESULT NEGATIVE FOR INTRAEPITHELIAL LESION OR MALIGNANCY (NIL) (none) 11/24/2017 2:00 PM CDT [facility] at 1400 CDT SPECIMEN ADEQUACY Satisfactory for evaluation No endocervical component seen in a patient 11/24/2017 2:00 PM CDT [facility] HPV REQUEST HPV if ASCUS 11/24/2017 2:00 PM CDT [facility] Date of LMP 09/11/2017 11/24/2017 2:00 PM CDT [facility] Last Pap Date 11/24/2017 2:00 PM CDT [facility] Comment:2013 Last Pap Result 8 2:00 PM CDT [facility] Comment:neg Menstrual Status 11/24/2017 2:00 PM CDT [facility] Automated Review Successful 11/24/2017 2:00 PM CDT [facility] Comment:Specimen processed s uccessfully by automated executive director global brand marketing device, ThinPrep Imaging System, [employer] Note The pap test is a [...] lesions. Cytology is screened and interpreted at [facility] - [address], [place] [address] and [facility] - [address]; [place] [address] [address] [facility] - [address]; [place] [address] and [facility] [address]; [place] [address] 11/24/2017 2:00 PM CDT [facility] Other (Cervical/Vagina l) 11/12/2017 12:00 PM CDT 11/14/2017 12:15 PM CDT us June Cameron REEVES PATHOLOGY/CYTOLOGY Final R esult [facility] [address] [place] [address], [place] * ACUTE HEPATITIS PANEL (12/08/2011 9:40 AM CDT) HBSAG Non-reacti ve [facility] IGM ANTI HBC Non-reacti ve [facility] IGM ANTI HAV Non-reacti ve [facility] ANTI HCV Non-reacti ve [facility] Blood specimen (specimen) BLOOD SPECIMEN / Unknown 12/08/2011 9:40 AM CDT 12/08/2011 9:29 AM CDT us Bobby Cage MD SEND OUTS Final Resul t [facility] INTERNAL ZIP [id number] [place] [address] * ANTI HIV 1/2 (11/21/2011 10:45 AM CDT) ANTI HIV 1/2 Non-reacti ve [facility] Blood specimen (specimen) BLOOD SPECIMEN / Unknown 11/21/2011 10:45 AM CDT 11/21/2011 10:35 AM CDT Jo Ann Kelley NP SEND OUTS Final Result [facility] INTERNAL ZIP [id number] [place] [address] from Last 3 Months or Most Recently Relevant to Health Maintenance Insurance [facility] * Guarantor: [employer] Account Type Relation to Patient Date of Phone Billing Address Contract 2004 [address] [place] [place] [address] Advance Directives * Full Code (Latest Code [...] 12:21 PM 10/16/2014 4:07 PM Care Teams Cake Mixer Relationship Specialty Start Date End Date Pcp, No . PCP - General 02/01/22 Patrick Manjarrez MD [address] [address] Consulting Physician Surgery - General 03/28/21 Stephy Sanderson RN [address] [id number] Horticultural Farmworker Registered Nurse 03/28/[address] [id number] Eligibility Supervisor/Telemedicine Physician Manager Hematology 03/28/21
--- NOTE | 2024-08-10 10:22 | ED.GENADULT ---
HPI - General Adult General Chief complaint: Skin/Abscess/Foreign Body Stated complaint: Hives Time Seen by Provider: 08/10/24 10:22 History of Present Illness HPI narrative: Pt was started on Bactrim on and developed hives starting on Saturday. Recently hospitalized for infected wound from tubal reversal. Hives on on thighs mostly and are very itchy. Denies SOB or difficulty breathing or swallowing. She called the clinc and was advised to come to ED for eval . 34-year-old woman presenting to the emergency department with concern of a rash. She had a reversal of tubal ligation ultimately with a wound infection and was admitted for abscess drainage on 08/07. Fascia noted to be intact. Discharged 2 days ago in continued on Bactrim. Began to have hives/rash starting 2 days ago. Itchy primarily on the thighs. Called in and recommended to present to the emergency department for evaluation. No shortness of breath or difficulty with swallowing. Review shows wound culture of coag-negative staph Related Data Home Medications ?Medication ?Instructions ?Recorded ?Confirmed cholecalciferol (vitamin D3) 125 125 mcg PO QDAY 10/20/21 08/12/24 mcg (5,000 unit) capsule calcium carbonate (Calcium 500) 1,000 mg PO QDAY 11/27/22 08/12/24 multivitamin 1 tab PO QAM 11/27/22 08/12/24 vitamin B complex 1 cap PO QDAY 11/27/22 08/12/24 Previous Rx's ?Medication ?Instructions ?Recorded oxycodone 5 mg tablet 5 mg PO Q4H PRN 4 OR GREATER ON 08/08/24 PAIN SCALE #15 tabs clindamycin HCl 300 mg capsule 300 mg PO TID 8 days #24 caps 08/10/24 prednisone 20 mg tablet 60 mg (3 x 20 mg) PO DAILY 5 days 08/12/24 #15 tabs Allergies Allergy/AdvReac Type Severity Reaction Status Date / Time cephalexin Allergy Severe Hives Verified 08/12/24 05:56 amoxicillin Allergy Intermediate Hives Verified 08/12/24 05:56 sulfamethoxazole (From Allergy Mild Hives Verified 08/12/24 05:56 Bactrim) trimethoprim (From Bactrim) Allergy Mild Hives Verified 08/12/24 05:56 Penicillin Allergy Intermediate Hives Uncoded 08/11/24 08:47 Review of Systems Status of ROS: Reports: 6 or more systems reviewed and unremarkable except as noted in History and below PFSH PFSH Medical History Low HDL (under 40) ?E78.6 - Lipoprotein deficiency (ICD-10) Severe major depression without psychotic features (01/2021) ?F32.2 - Major depressive disorder, single episode, severe without psychotic features (ICD-10) Surgical History History of reversal of tubal ligation ?Z98.890 - Other specified postprocedural states (ICD-10) History of Junior-en-Y gastric bypass ?Z98.84 - Bariatric surgery status (ICD-10) History of tubal ligation (2018) ?Z98.51 - Tubal ligation status (ICD-10) History of third molar tooth extraction (2009) ?K08.409 - Partial loss of teeth, unspecified cause, unspecified class (ICD-10) History of bladder suspension procedure (2018) ?Z98.890 - Other specified postprocedural states (ICD-10) ?Z87.448 - Personal history of other diseases of urinary system (ICD-10) Family History Maternal Grandmother Breast cancer, Onset Age: 50 Sister Mental disorder Father Mental disorder Maternal Grandfather Myocardial infarction, Onset Age: 50 Social History 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: , 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[employer] , 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 Exercise walks twice a week Non-smoker Rarely consumes alcohol What is your current living situation?: I presently have a place to live In the past 12 months, utilities in danger of being shut off: no In past 12 months, lack of transportation kept you from medical appts, meetings, work, or getting things needed for daily living: no In the past 12 mos, have been you worried that your food would run out before you had money to buy more?: never true In the past 12 mos, the food you bought just didn't last and you didn't have money to buy more?: never true Smoking Status: Never smoker Do you use any of these nicotine containing products: None Second hand tobacco smoke exposure: No How often do you have a drink containing alcohol: never How often do you have six or more drinks on one occasion: Never AUDIT-C Alcohol total score: 0 Non-prescribed substance use: denies use How often does anyone, including family, friends and others, physically hurt you: never How often does anyone, including family, friends and others, insult or talk down to you: never How often does anyone, including family, friends and others, threaten you with harm: never How often does anyone, including family, friends and others, scream or curse at you: never Are you using contraception or practicing any form of control: Yes service: No Exam Narrative: Exam Narrative: Pleasant. NAD. Ambulating gingerly however. Breathing easily. Lungs are clear. Heart in regular rate and rhythm. Abdomen with mild serosanguineous drainage on abdominal pad over packed wound. I do not see significant erythema or induration at the wound edges of her abdomen. Is not terribly tender. No significant purulent drainage. There are erythematous scattered macular papular eruptions without significant elevation over the thighs primarily. Const: Vital Signs, click to edit/add: Vital Signs - 24 hr 08/10/24 10:23 Temperature 98.1 F Pulse Rate [Pulse Oximeter] 71 Respiratory Rate 18 Blood Pressure [Ri ght Upper Arm] 134/87 Pulse Oximetry 98 Oxygen Delivery Me thod Room Air Documenting provider has reviewed patient's vital signs: yes Course Vital Signs Vital signs: Initial Vital Signs Temperature 98.1 F 08/10/24 10:23 Temperature Source Temporal Artery Scan 08/10/24 10:23 Pulse Rate 71 08/10/24 10:23 Pulse Rhythm Regular 08/10/24 10:23 Respiratory Rate 18 08/10/24 10:23 Blood Pressure 134/87 08/10/24 10:23 Blood Pressure Mean 102 08/10/24 10:23 Blood Pressure Position Sitting 08/10/24 10:23 Pulse Oximetry 98 08/10/24 10:23 Oxygen Delivery Method Room Air 08/10/24 10:23 Vital Signs Temperature 98.1 F 08/10/24 10:23 Pulse Rate 71 08/10/24 10:23 Respiratory Rate 18 08/10/24 10:23 Blood Pressure 134/87 08/10/24 10:23 Pulse Oximetry 98 08/10/24 10:23 Oxygen Delivery Method Room Air 08/10/24 10:23 Temperature 98.1 F 08/10/24 10:23 Pulse Rate 71 08/10/24 10:23 Respiratory Rate 18 08/10/24 10:23 Blood Pressure 134/87 08/10/24 10:23 Pulse Oximetry 98 08/10/24 10:23 Oxygen Delivery Method Room Air 08/10/24 10:23 Medical Decision Making MDM Narrative Medical decision making narrative: This certainly might be reaction to Bactrim particularly sulfa. Otherwise appears to be healing well. Changed overlying absorbent pad. Presuming potential reaction will change antibiotic to clindamycin. Discussed case with OB on-call. See patient discharge plan for further discussion Continue with current wound cares. Would consider taking diphenhydramine when you get home; 1 dose might be enough. Might need to re-dose if hives recur. Discontinue Bactrim at this point and will change to clindamycin. Unfortunately we do not have any in [facility] so I am sending it into your pharmacy. Discharge Plan Discharge Clinical Impression: Postoperative wound infection Patient Disposition: Home w/ Parent or Adult Condition: Stable Additional Instructions: Continue with current wound cares. Would consider taking diphenhydramine when you get home; 1 dose might be enough. Might need to re-dose if hives recur. Discontinue Bactrim at this point and will change to clindamycin. Unfortunately we do not have any in [facility] so I am sending it into your pharmacy. Prescriptions: New clindamycin HCl 300 mg capsule 300 mg PO TID 8 Days Qty: 24 0RF No Action cholecalciferol (vitamin D3) 125 mcg (5,000 unit) capsule 125 mcg PO QDAY vitamin B complex Capsule 1 cap PO QDAY multivitamin Tablet 1 tab PO QAM calcium carbonate [Calcium 500] 500 mg calcium (1,250 mg) tablet,chewable 1,000 mg PO QDAY prednisone 20 mg tablet 60 mg PO DAILY 5 Days Qty: 15 0RF oxycodone 5 mg Tablet 5 mg PO Q4H PRN (Reason: 4 OR GREATER ON PAIN SCALE) Qty: 15 0RF Follow Up/Referrals: Wendi Rivera MD [Primary Care Provider, Family Practice] Stand Alone Forms: [employer] Info Instructions
[2024-08-10 10:23] VITALS: BP 134/87; PULSE 71; RESP 18; TEMP 36.7; O2SAT 98
== END 2024-08-10 11:30 | disposition home or self-care (01) ==
PROVIDERS: Emergency Provider Family Medicine; PCP Family Medicine
DX: T81.49XA Infection following a procedure, other surgical site, initial encounter (principal)
CPT/HCPCS: 99283

== ENCOUNTER 2024-08-12 05:39 | Emergency (ER) | payer MEDICAID, SELFPAY ==
--- OUTSIDE RECORDS SUMMARY | 2024-08-12 05:42 | XMS_ITS | Clinical Summary ---
Author Organization [facility] [employer] Formerly [facility] Address [address] [place] [address] Care Team Providers Care Administrative Representative Name Role Phone Patrick Manjarrez MD Unavailable [phone] Stephy Sanderson RN Unavailable [phone] Unavailable [phone] Pcp, No Primary Care Provider Unavailabl e [...] // Betty Alvarado RN, Bariatric Nurse Clinician, [facility] 02/12/2022. Penicillins Hives 05/27/2005 Medications [...] iron deficiency anemia 2004 Records requested from [facility] 09/22/14 PNL: A neg; Ab neg; Rhogam: [...] trimester screening reviewed, patient declined consent at [facility]. 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 2014 Term 39w 3d 4.26 kg (9 lb 6.3 oz) M Vag Epidur al Livin g 8 9 [place] Dumer valdez Complications:None Delivery Location:[facility] Last Filed Vital Signs Vital Sign Reading Time Taken Comments Blood Pressure 166/80 02/10/2022 8:25 AM CLINICAL DATA RESEARCH Pulse 82 02/10/2022 8:25 AM CLINICAL DATA RESEARCH Temperature 36.7 C (98 F) 02/10/2022 8:25 AM CLINICAL DATA RESEARCH Respiratory Rate 16 02/10/2022 8:25 AM CLINICAL DATA RESEARCH Oxygen Saturation 96% 02/10/2022 8:25 AM CLINICAL DATA RESEARCH Inhaled Oxygen Concentration - - Weight 120.7 kg (266 lb) 03/13/2022 10:00 AM CLINICAL DATA RESEARCH Height 172.7 cm (5' 7.99) 03/13/2022 10:00 AM C Body Mass Index 40.45 03/13/2022 10:00 AM CLINICAL DATA RESEARCH Plan of Treatment Health Maintenance Due Date Last Done Comments Pap test for age 21-65 11/12/2020 8, 04/12/2014 ([facility]) Depression screening for age 12+ 07/21/2022 [...] Procedure Name Priority Date/Time Associated Diagnosis Comments CRIMINALIST TECHNICIAN THIN PREP PAP SCREEN IMAGED Routine 11/12/2017 12:00 PM CDT ACUTE HEPATITIS PANEL STAT 12/08/2011 9:40 AM CDT ANTI HIV 1/2 Routine 11/21/2011 10:45 AM CDT Special screening for other specified conditions from Last 3 Months or Most Recently Relevant to Health Maintenance Results * CRIMINALIST TECHNICIAN THIN PREP PAP SCREEN IMAGED (11/12/2017 12:00 PM CDT) Case Report Gynecologic Cytology Report Case: [id number] Authorizing Provider: Caryn Barnes PA-C Collected: 11/12/2017 1200 First Screen: Johnny Vazquez Received: 11/14/2017 1215 Specimen: CRIMINALIST TECHNICIAN ThinPrep Vial Screening, Cervical/Vaginal 11/24/2017 2:00 PM CDT [facility] INTERPRETATION/ RESULT NEGATIVE FOR INTRAEPITHELIAL LESION OR MALIGNANCY (NIL) (none) 11/24/2017 2:00 PM CDT [facility] at 1400 CDT SPECIMEN ADEQUACY Satisfactory for evaluation No endocervical component seen in a patient 11/24/2017 2:00 PM CDT [facility] HPV REQUEST HPV if ASCUS 11/24/2017 2:00 PM CDT [facility] Date of LMP 09/11/2017 11/24/2017 2:00 PM CDT [facility] Last Pap Date 11/24/2017 2:00 PM CDT [facility] Comment:2013 Last Pap Result 8 2:00 PM CDT [facility] Comment:neg Menstrual Status 11/24/2017 2:00 PM CDT [facility] Automated Review Successful 11/24/2017 2:00 PM CDT [facility] Comment:Specimen processed s uccessfully by automated personal attendant device, ThinPrep Imaging System, [employer] Note The pap test is a [...] lesions. Cytology is screened and interpreted at [facility] - [address], [place] [address] and [facility] - [address]; [place] [address] and [facility] - [address]; [place] [address] and [facility] [address]; [place] [address] 11/24/2017 2:00 PM CDT [facility] Other (Cervical/Vagina l) 11/12/2017 12:00 PM CDT 11/14/2017 12:15 PM CDT us June Cameron REEVES PATHOLOGY/CYTOLOGY Final R esult [facility] [address] [place] [address], [place] * ACUTE HEPATITIS PANEL (12/08/2011 9:40 AM CDT) HBSAG Non-reacti ve [facility] IGM ANTI HBC Non-reacti ve [facility] IGM ANTI HAV Non-reacti ve [facility] ANTI HCV Non-reacti ve [facility] Blood specimen (specimen) BLOOD SPECIMEN / Unknown 12/08/2011 9:40 AM CDT 12/08/2011 9:29 AM CDT us Bobby Cage MD SEND OUTS Final Resul t [facility] [place]NAL ZIP [id number] [place] [address] * ANTI HIV 1/2 (11/21/2011 10:45 AM CDT) ANTI HIV 1/2 Non-reacti ve [facility] Blood specimen (specimen) BLOOD SPECIMEN / Unknown 11/21/2011 10:45 AM CDT 11/21/2011 10:35 AM CDT Jo Ann Kelley NP SEND OUTS Final Result [facility] [place]NAL ZIP [id number] [place] [address] from Last 3 Months or Most Recently Relevant to Health Maintenance Insurance [facility] * Guarantor: [employer] Account Type Relation to Patient Date of Phone Billing Address Contract 2004 [address] [place] [address] Advance Directives * Full Code (Latest Code [...] 12:21 PM 10/16/2014 4:07 PM Care Teams Administrative Representative Relationship Specialty Start Date End Date Pcp, No . PCP - General 02/01/22 Patrick Manjarrez MD [address] [address] Consulting Physician Surgery - General 03/28/21 Stephy Sanderson RN [address] [id number] General Production Laborer Registered Nurse 03/28/[address] [id number] Student Recruiter/Bioinformatics Analyst In Home Caregiver 03/28/21
[2024-08-12 05:45] VITALS: BP 137/88; PULSE 94; RESP 20; TEMP 36.9; O2SAT 99; BMI 36.5
--- NOTE | 2024-08-12 05:56 | ED.SKABFB ---
HPI - Skin/Abscess/Foreign Bdy General Time Seen by Provider: 05:56 Date Seen: 08/12/24 Chief complaint: Skin/Abscess/Foreign Body Stated complaint: allergic reaction, not getting better Time Seen by Provider: 08/12/24 05:57 Source: patient Mode of arrival: ambulatory History of Present Illness HPI narrative: Stephy is a 34-year-old female who has a recent surgical history of a tubal reversal in [place] on 08/01/2024 initially placed on IV and oral clindamycin following the procedure, and then reported to the emergency room were 9 08/06/2024 with worsening pain, drainage from her incision and started on Bactrim. Patient was seen with [facility] on 08/08/24 and brought back to the operating room for wound debridement secondary to surgical site infection. Patient was then discharged on oral Bactrim and oral clindamycin. The patient states that she stopped her Bactrim 08/09/2024 as she developed hives diffusely over her entire body - arms, legs, back, torso, abdomen. Patient states that she was seen in urgent care yesterday on 08/11/2024 for hives and at that time she was started on prednisone, Benadryl. Patient states she did take a dose of her prednisone this morning at 3:45 a.m. and a dose of Benadryl 50 mg at 4:00 a.m.. Patient presents with ongoing hives, throat discomfort, unable to sleep due to the discomfort. Patient denies any fever, chills, chest pain, shortness of breath, dysuria, hematuria, abdominal pain, nausea, vomiting. Patient reports incision appears to be healing well. Patient has a follow-up appointment with [facility] today at 11:30 a.m.. No other complaints. Related Data Home Medications ?Medication ?Instructions ?Recorded ?Confirmed cholecalciferol (vitamin D3) 125 125 mcg PO QDAY 10/20/21 08/12/24 mcg (5,000 unit) capsule calcium carbonate (Calcium 500) 1,000 mg PO QDAY 11/27/22 08/12/24 multivitamin 1 tab PO QAM 11/27/22 08/12/24 vitamin B complex 1 cap PO QDAY 11/27/22 08/12/24 Previous Rx's ?Medication ?Instructions ?Recorded oxycodone 5 mg tablet 5 mg PO Q4H PRN 4 OR GREATER ON 08/08/24 PAIN SCALE #15 tabs clindamycin HCl 300 mg capsule 300 mg PO TID 8 days #24 caps 08/10/24 prednisone 20 mg tablet 40 mg (2 x 20 mg) PO QDAY 5 days 08/11/24 #10 tabs prednisone 20 mg tablet 60 mg (3 x 20 mg) PO DAILY 5 days 08/12/24 #15 tabs Allergies Allergy/AdvReac Type Severity Reaction Status Date / Time cephalexin Allergy Severe Hives Verified 08/12/24 05:56 amoxicillin Allergy Intermediate Hives Verified 08/12/24 05:56 sulfamethoxazole (From Allergy Mild Hives Verified 08/12/24 05:56 Bactrim) trimethoprim (From Bactrim) Allergy Mild Hives Verified 08/12/24 05:56 Penicillin Allergy Intermediate Hives Uncoded 08/11/24 08:47 Review of Systems Narrative: Past medical history, past surgical history, medications, allergies, family history, and social history were reviewed with the patient. No additional pertinent items. A medically appropriate review of systems was performed with pertinent positives and negatives noted in HPI, all other systems negative. 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) Severe major depression without psychotic features (01/2021) ?F32.2 - Major depressive disorder, single episode, severe without psychotic features (ICD-10) Surgical History History of Junior-en-Y gastric bypass ?Z98.84 - Bariatric surgery status (ICD-10) History of tubal ligation (2019) ?Z98.51 - Tubal ligation status (ICD-10) History of third molar tooth extraction (2009) ?K08.409 - Partial loss of teeth, unspecified cause, unspecified class (ICD-10) History of bladder suspension procedure (2018) ?Z98.890 - Other specified postprocedural states (ICD-10) ?Z87.448 - Personal history of other diseases of urinary system (ICD-10) Family History Maternal Grandmother Breast cancer, Onset Age: 50 Sister Mental disorder Father Mental disorder Maternal Grandfather Myocardial infarction, Onset Age: 50 Social History Narrative: , 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[employer] , 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 Exercise walks twice a week Non-smoker Rarely consumes alcohol What is your current living situation?: I presently have a place to live In the past 12 months, utilities in danger of being shut off: no In past 12 months, lack of transportation kept you from medical appts, meetings, work, or getting things needed for daily living: no In the past 12 mos, have been you worried that your food would run out before you had money to buy more?: never true In the past 12 mos, the food you bought just didn't last and you didn't have money to buy more?: never true Smoking Status: Never smoker Do you use any of these nicotine containing products: None Second hand tobacco smoke exposure: No How often do you have a drink containing alcohol: never How often do you have six or more drinks on one occasion: Never AUDIT-C Alcohol total score: 0 Non-prescribed substance use: denies use How often does anyone, including family, friends and others, physically hurt you: never How often does anyone, including family, friends and others, insult or talk down to you: never How often does anyone, including family, friends and others, threaten you with harm: never How often does anyone, including family, friends and others, scream or curse at you: never Are you using contraception or practicing any form of control: Yes service: No Exam Narrative: Exam Narrative: General: Afebrile, in distress secondary to pain HEENT: Normocephalic, atraumatic, conjunctiva normal. MMM Neck: non-tender, supple Cardio: regular rate. regular rhythm Resp: Normal work of breathing, no respiratory distress, lungs clear bilaterally, no wheezing, rhonchi, rales Chest/Back: no visual signs of trauma, no midline tenderness, no CVA tenderness Abdomen: soft, non distension, no tenderness, no peritoneal signs Neuro: alert and fully oriented. CN II-XII grossly intact. Grossly normal strength and sensation in all extremities. MSK: no deformities. Normal range of motion Integumentary/Skin: diffuse pruritic raised erythematous wheels over face, neck, trunk, extremities. lesions vary in size, mal with pressure. no evidence of blistering of skin, no skin detachment/peeling, no mucous membrane involvement Psych: normal affect, normal behavior Const: Vital Signs, click to edit/add: Vital Signs - 24 hr 08/12/24 05:45 08/12/24 06:24 Temperature 98.5 F Pulse Rate [Right Pulse Oximeter] 94 Respiratory Rate 20 Blood Pressure [Ri ght Upper Arm] 137/88 Pulse Oximetry 99 99 Oxygen Delivery Me thod Room Air Course Course ED Course: Stephy is a 34-year-old female who has a recent surgical history of a tubal reversal in [place] on 08/01/2024 initially placed on IV and oral clindamycin following the procedure, and then reported to the emergency room were 9 08/06/2024 with worsening pain, drainage from her incision and started on Bactrim. Upon arrival patient is nontoxic appearing, afebrile, in distress secondary to rash and pruritus. Patient hemodynamically stable on vital signs within normal limits, heart rate 94, blood pressure 137/80, oxygen 99% on room air. Clinically patient is nontoxic-appearing and suspect likely allergic reaction/drug eruption secondary tab back drum. Patient did discontinue the medication however this time I would recommend her to stop the clindamycin until she follows up with her surgeons/woman health at her appointment later today as her wound does appear to be healing well. Patient was treated with cetirizine, IV Pepcid, IV Solu-Medrol, IV fluid bolus in the emergency department. Patient took Benadryl prior to arrival. On examination no evidence of blistering, no skin detachment/peeling, no mucous membrane involvement. No clinical signs of Abdoulaye Curtis symptoms or toxic epidermal necrolysis at this time. Comprehensive labs were performed and unremarkable with white blood cell count 5.56, hemoglobin 13.5. No acute metabolic or electrolyte abnormality, normal eosinophils. Elevation in liver function tests with AST 101, ALT 239, alkaline phosphatase 157. Patient denies any abdominal pain, nausea, vomiting. Consider Dress syndrome however patient was recently placed on Bactrim on 08/06/2024 and this continued Bactrim on 08/09/2024. Typically would occur weeks after being on Bactrim (delayed drug reaction). Patient is also afebrile, normal eosinophils, normal kidney function, no pulmonary involvement. Also considered Bactrim toxicity. I discussed patient management with poison control/toxicology who recommends IVF, monitor/trend LFTs. Will add on hepatitis labs for possible Bactrim induced/drug induced liver injury/hepatitis. I discussed patient management with hospitalists who will evaluate the patient and plan on observation admission for supportive care and continue monitoring versus close out patient follow-up for recheck of rash and repeat LFTs. Overall patient nontoxic appearing. Patient will be discharged and follow up with her woman's health appointment at 11:30 a.m. today. Plan to return back to the hospital tomorrow on 08/13/2024 for repeat laboratory testing CBC, CMP, and a follow-up/ re-evaluation/recheck by Dr. Isabel on the [facility] floor. Patient understands and agrees with the plan. Vital Signs Vital signs: Initial Vital Signs Temperature 98.5 F 08/12/24 05:45 Temperature Source Temporal Artery Scan 08/12/24 05:45 Pulse Rate 94 08/12/24 05:45 Respiratory Rate 20 08/12/24 05:45 Blood Pressure 137/88 08/12/24 05:45 Blood Pressure Mean 104 08/12/24 05:45 Blood Pressure Position Sitting 08/12/24 05:45 Pulse Oximetry 99 08/12/24 05:45 Oxygen Delivery Method Room Air 08/12/24 05:45 Vital Signs Temperature 98.5 F 08/12/24 05:45 Pulse Rate 94 08/12/24 05:45 Respiratory Rate 20 08/12/24 05:45 Blood Pressure 137/88 08/12/24 05:45 Pulse Oximetry 99 08/12/24 05:45 Oxygen Delivery Method Room Air 08/12/24 05:45 Temperature 98.5 F 08/12/24 05:45 Pulse Rate 94 08/12/24 05:45 Respiratory Rate 20 08/12/24 05:45 Blood Pressure 137/88 08/12/24 05:45 Pulse Oximetry 99 08/12/24 06:24 Oxygen Delivery Method Room Air 08/12/24 05:45 Medications Administered Medications: Discontinued Medications Generic Name Dose Route Start Last Admin Trade Name Freq PRN Reason Stop Dose Admin Cetirizine HCl 10 mg 08/12/24 06:13 08/12/24 06:20 Cetirizine Hcl 10 Mg Tablet PO 08/12/24 06:14 10 mg DAILY ONE Administration Famotidine 20 mg 08/12/24 06:12 08/12/24 06:19 Famotidine 10 Mg/Ml Inj IVP 08/12/24 06:13 20 mg ONCE ONE Administration Sodium Chloride 1,000 mls @ 1,000 mls/hr 08/12/24 06:15 08/12/24 06:19 0.9 % Sodium Chloride 1000 Ml IV 08/12/24 07:14 1,000 mls/hr .Q1H AIRAM Administration Methylprednisolone Sodium Succinate 125 mg 08/12/24 06:12 08/12/24 06:20 Methylprednisolone Sod Succ 62.5 Mg/Ml (125) IVP 08/12/24 06:13 125 mg ONCE ONE Administration MDM - Skin/Abscess/Foreign Bdy Lab Data Labs: Lab Results 08/12/24 Range/Units 06:15 WBC 5.56 (4.50-11.00) K/uL RBC 4.77 (4.00-5.20) m/uL Hgb 13.5 (12.0-16.0) gm/dL Hct 40.5 (33.0-51.0) % MCV 85 (80-100) fL MCH 28 (26-34) pg MCHC 33 (32-36) gm/dL RDW Coeff of Christina 13.6 (11.5-15.5) % Plt Count 184 (140-440) K/uL Neut % (Auto) 82.1 H (42.0-72.0) % Lymph % (Auto) 10.3 L (20-44) % [place] % (Auto) 3.8 (0.0-11.0) % Eos % (Auto) 3.4 (0.0-7.0) % Baso % (Auto) 0.2 (0.0-3.0) % Neut # (Auto) 4.60 (1.7-7.0) K/uL Lymph # (Auto) 0.60 L (0.90-2.90) K/uL [place] # (Auto) 0.20 (0.00-0.90) K/UL Eos # (Auto) 0.19 (0.00-0.50) K/uL Baso # (Auto) 0.01 (0.00-0.30) K/uL Abs Immat Gran (auto) 0.01 (0.00-0.30) K/uL Imm/Tot Granulo (auto) 0.2 % Sodium 138 (135-149) mmol/L Potassium 4.3 (3.6-5.1) mmol/L Chloride 106 (96-114) mmol/L Carbon Dioxide 23 (20-32) mmol/L Anion Gap 9 (7-15) mEq/L BUN 17 (5-24) mg/dL Creatinine 0.6 (0.5-1.5) mg/dL Estimated Creat Clear 140.68 Estimated GFR 122 ml/min Glucose 109 (60-115) mg/dL Calcium 9.3 (8.4-10.6) mg/dL Total Bilirubin 0.9 (0.1-1.5) mg/dL AST 101 H (12-35) U/L ALT 239 H (4-35) U/L Alkaline Phosphatase 157 H (40-150) U/L Total Protein 7.2 (6.0-8.3) g/dL Albumin 4.5 (3.3-5.0) g/dL Discharge Plan Discharge Clinical Impression: Rash, Elevated liver function tests Patient Disposition: Home, Self-Care Condition: Stable Additional Instructions: Please follow up tomorrow for repeat laboratory testing and repeat examination with Dr. Isabel. Please continue your own medications. Please follow-up at your appointment today. Please continue prednisone but take 60 mg (3 tablets) daily for the next 5 days. Please continue Benadryl 2 tablets every 6 hours as needed for itching. We recommend discontinuing your antibiotics including clindamycin however please discuss this with your surgeons today. Return to the emergency department if any worsening symptoms, persistent high fever, difficulty breathing, severe pain, blistering, skin detachment, or involvement of the rash review mucous membranes (mouth, lips, etc.). It was a pleasure taking care of you today. We hope you feel better soon. Prescriptions: New prednisone 20 mg tablet 60 mg PO DAILY 5 Days Qty: 15 0RF No Action cholecalciferol (vitamin D3) 125 mcg (5,000 unit) capsule 125 mcg PO QDAY vitamin B complex Capsule 1 cap PO QDAY multivitamin Tablet 1 tab PO QAM calcium carbonate [Calcium 500] 500 mg calcium (1,250 mg) tablet,chewable 1,000 mg PO QDAY prednisone 20 mg tablet 40 mg PO QDAY 5 Days Qty: 10 0RF clindamycin HCl 300 mg capsule 300 mg PO TID 8 Days Qty: 24 0RF oxycodone 5 mg Tablet 5 mg PO Q4H PRN (Reason: 4 OR GREATER ON PAIN SCALE) Qty: 15 0RF Follow Up/Referrals: Wendi Rivera MD [Primary Care Provider, Family Practice] Stand Alone Forms: MyHealth Info Instructions
[2024-08-12] MEDS: 0.9 % SODIUM CHLORIDE 1000 ml 1,000 ML IV (06:19)
[2024-08-12] MEDS: FAMOTIDINE 10 MG/ML inj 20 MG IVP (06:19)
[2024-08-12] MEDS: METHYLPREDNISOLONE SOD SUCC 62.5 MG/ML (125) 125 MG IVP (06:20)
[2024-08-12] MEDS: CETIRIZINE HCL 10 MG TABLET PO (06:20)
[2024-08-12 06:24] VITALS: O2SAT 99
[2024-08-12 06:30] LABS: Basophils Absolute Auto 0.01 K/uL (0.00-0.30); Basophils Percent Auto 0.2 % (0.0-3.0); Eosinophils Absolute Auto 0.19 K/uL (0.00-0.50); Eosinophils Percent Auto 3.4 % (0.0-7.0); Hematocrit 40.5 % (33.0-51.0); Hemoglobin* 13.5 gm/dL (12.0-16.0); Immature Granulocytes Abs Auto 0.01 K/uL (0.00-0.30); Immature Granulocytes Pct Auto 0.2 %; Lymphocytes Percent Auto 10.3 % (20-44); Mean Corpuscular HGB Conc 33 gm/dL (32-36); Mean Corpuscular Hemoglobin 28 pg (26-34); Mean Corpuscular Volume 85 fL (80-100); Monocytes Percent Auto 3.8 % (0.0-11.0); Neutrophils Percent Auto 82.1 % (42.0-72.0); Platelet Count* 184 K/uL (140-440); RDW Coefficient of Variation % 13.6 % (11.5-15.5); Red Blood Count 4.77 m/uL (4.00-5.20); Slide Review Reflex No; White Blood Count* 5.56 K/uL (4.50-11.00)
[2024-08-12 06:59] LABS: Albumin* 4.5 g/dL (3.3-5.0); Chloride* 106 mmol/L (96-114)
[2024-08-12 07:00] LABS: Potassium* 4.3 mmol/L (3.6-5.1); Sodium* 138 mmol/L (135-149)
[2024-08-12 07:02] LABS: Alanine Aminotransferase* 239 U/L (4-35); Anion Gap 9 mEq/L (7-15); Aspartate Amino Transferase* 101 U/L (12-35); Blood Urea Nitrogen* 17 mg/dL (5-24); Carbon Dioxide* 23 mmol/L (20-32); Creatinine* 0.6 mg/dL (0.5-1.5); Est. Creatinine Clearance* 140.68; Estimated Glomerular Filt Rate 122 ml/min
[2024-08-12 07:03] LABS: Alkaline Phosphatase* 157 U/L (40-150); Bilirubin Total* 0.9 mg/dL (0.1-1.5); Calcium* 9.3 mg/dL (8.4-10.6); Glucose* 109 mg/dL (60-115); Total Protein* 7.2 g/dL (6.0-8.3)
--- NOTE | 2024-08-12 10:57 | PM.IMCN1 ---
Date of Consult Consult date: 08/12/24 Requesting Physician: Other (Emergency department) Primary Care Provider: Wendi Rivera MD Consult Narrative Reason for consult: Progressive rash and elevated liver enzymes Narrative: Stephy Watson is a 34 year old female presents to the emergency department for a worsening rash. Recent medical history: August 01 she underwent a reversal of the tubal ligation in [place]. She was placed on clindamycin following this surgery. She returned to the [facility]. August 06 she presents to our emergency room with signs of a wound infection with redness and drainage. At that time she also had some abdominal pain. She was placed on Bactrim because of a history of rash from cephalexin or amoxicillin. August 07 she was taken to the OR by Gynecology for a wound debridement of her surgical wound. In the hospital, she received IV clindamycin and gentamicin. She was discharged to continue oral clindamycin and Bactrim. August 08 or she developed a rash. The rash was red blotches, very itchy and started on her proximal, medial anterior thighs. She stopped taking the Bactrim because of the rash. August 10 she was seen in the emergency department for the rash. August 11 she was seen in clinic for the rash as it was getting worse. She was started on prednisone 40 mg daily. She reports she has also been taking Benadryl 50 mg 4 times a day for the itching. The rash continues to get worse. August 12: She returns to the emergency room with continued worsening of the rash. Is now spread out from her thighs to the rest of her trunk. Minimal involvement in her distal extremities. She has not seen any blistering or pustules. The rash continues to be very itchy with minimal relief from Benadryl and Zyrtec. He has not had a fever. She has not had any sores in her mouth. No shortness of breath. She reports that her abdominal pain and incision are much better now. She remains on clindamycin but stopped the Bactrim 3 days ago. [facility] Medical History (Updated 08/12/24 @ 11:28 by Warren Isabel MD) Low HDL (under 40) ?E78.6 - Lipoprotein deficiency (ICD-10) Severe major depression without psychotic features (01/2021) ?F32.2 - Major depressive disorder, single episode, severe without psychotic features (ICD-10) Surgical History (Updated 08/12/24 @ 11:24 by Warren Isabel MD) History of reversal of tubal ligation ?Z98.890 - Other specified postprocedural states (ICD-10) History of Junior-en-Y gastric bypass ?Z98.84 - Bariatric surgery status (ICD-10) History of tubal ligation (2019) ?Z98.51 - Tubal ligation status (ICD-10) History of third molar tooth extraction (2009) ?K08.409 - Partial loss of teeth, unspecified cause, unspecified class (ICD-10) History of bladder suspension procedure (2019) ?Z98.890 - Other specified postprocedural states (ICD-10) ?Z87.448 - Personal history of other diseases of urinary system (ICD-10) Family History Maternal Grandmother Breast cancer, Onset Age: 50 Sister Mental disorder Father Mental disorder Maternal Grandfather Myocardial infarction, Onset Age: 50 Social History Narrative: , 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[employer] , 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 Exercise walks twice a week Non-smoker Rarely consumes alcohol What is your current living situation?: I presently have a place to live In the past 12 months, utilities in danger of being shut off: no In past 12 months, lack of transportation kept you from medical appts, meetings, work, or getting things needed for daily living: no In the past 12 mos, have been you worried that your food would run out before you had money to buy more?: never true In the past 12 mos, the food you bought just didn't last and you didn't have money to buy more?: never true Smoking Status: Never smoker Do you use any of these nicotine containing products: None Second hand tobacco smoke exposure: No How often do you have a drink containing alcohol: never How often do you have six or more drinks on one occasion: Never AUDIT-C Alcohol total score: 0 Non-prescribed substance use: denies use How often does anyone, including family, friends and others, physically hurt you: never How often does anyone, including family, friends and others, insult or talk down to you: never How often does anyone, including family, friends and others, threaten you with harm: never How often does anyone, including family, friends and others, scream or curse at you: never Are you using contraception or practicing any form of control: Yes service: No Meds Home Medications and Allergies Home Medications ?Medication ?Instructions ?Recorded ?Confirmed ?Type cholecalciferol (vitamin D3) 125 125 mcg PO QDAY 10/20/21 08/12/24 History mcg (5,000 unit) capsule calcium carbonate (Calcium 500) 1,000 mg PO QDAY 11/27/22 08/12/24 History multivitamin 1 tab PO QAM 11/27/22 08/12/24 History vitamin B complex 1 cap PO QDAY 11/27/22 08/12/24 History oxycodone 5 mg tablet 5 mg PO Q4H PRN 4 OR GREATER ON 08/08/24 08/12/24 Rx PAIN SCALE #15 tabs clindamycin HCl 300 mg capsule 300 mg PO TID 8 days #24 caps 08/10/24 08/12/24 Rx prednisone 20 mg tablet 60 mg (3 x 20 mg) PO DAILY 5 days 08/12/24 08/12/24 Rx #15 tabs Allergies Allergy/AdvReac Type Severity Reaction Status Date / Time cephalexin Allergy Severe Hives Verified 08/12/24 05:56 amoxicillin Allergy Intermediate Hives Verified 08/12/24 05:56 sulfamethoxazole (From Allergy Mild Hives Verified 08/12/24 05:56 Bactrim) trimethoprim (From Bactrim) Allergy Mild Hives Verified 08/12/24 05:56 Penicillin Allergy Intermediate Hives Uncoded 08/11/24 08:47 Exam Narrative: Exam Narrative: She is alert and appears in no distress. Eyes normal. Oropharynx normal. No mucosal abnormalities. Neck is supple without mass or adenopathy. Respirations are clear to auscultation. Cardiovascular: S1, S2, regular rate and rhythm. Abdomen is soft without significant tenderness. Skin is notable for a diffuse erythematous maculopapular rash. No blisters no pustules no ulcers. Lesions mal with palpation. They are ranging from a few mm to a cm in diameter. In some places they are confluent, especially on the back. Const: Vital Signs, click to edit/add: Vital Signs - 24 hr 08/12/24 05:45 08/12/24 06:24 Temperature 98.5 F Pulse Rate [Right Pulse Oximeter] 94 Respiratory Rate 20 Blood Pressure [Ri ght Upper Arm] 137/88 Pulse Oximetry 99 99 Oxygen Delivery Me thod Room Air Documenting provider has reviewed patient's vital signs: yes Labs Labs: Short CBC 08/12/24 Range/Units 06:15 WBC 5.56 (4.50-11.00) K/uL Hgb 13.5 (12.0-16.0) gm/dL Hct 40.5 (33.0-51.0) % Plt Count 184 (140-440) K/uL BMP 08/12/24 06:15 Sodium 138 Potassium 4.3 Chloride 106 Carbon Dioxide 23 BUN 17 Creatinine 0.6 Glucose 109 Calcium 9.3 Liver Function 08/12/24 Range/Units 06:15 Total Bilirubin 0.9 (0.1-1.5) mg/dL AST 101 H (12-35) U/L ALT 239 H (4-35) U/L Alkaline Phosphatase 157 H (40-150) U/L Albumin 4.5 (3.3-5.0) g/dL Assessment and Plan Assessment and plan (1) Rash: Problem comment: I think this is most likely urticaria from Bactrim. Continue supportive measures, Benadryl, Zyrtec, prednisone. Recheck tomorrow. Return to the emergency department for blistering, oral pharyngeal symptoms, fever Status: Acute (2) Elevated liver function tests: Problem comment: Likely also adverse drug reaction from Bactrim. Recheck tomorrow. Status: Acute (3) Postoperative wound infection: Problem comment: Improving. I would recommend getting off clindamycin as soon as possible. Gynecology appointment today Status: Acute (4) History of reversal of tubal ligation: Problem comment: 08/01/2024, [place] Status: Acute Plan Follow-up tomorrow with me at the hospital for recheck. CBC and LFTs tomorrow as well Total Time Spent Total Time Spent: Total time spent today is 40 minutes in reviewing records, coordination of care and discussing with patient ongoing evaluation management
--- NOTE | 2024-08-13 09:43 | PM.EN ---
Chart Event Note Time Seen by Provider: 09:00 Date Seen: 08/13/24 Chart Event Note: 34-year-old female seen in followup of rash in abnormal LFTs. She reports the rash is a little more prominent on her arms and around her neck and even onto her face. Otherwise it is about the same. No sores in the mouth. No trouble breathing. Eating okay. She is having no fever and otherwise reports doing well aside from her rash. She is still taking Zyrtec and Benadryl for the itching and prednisone. She stop clindamycin yesterday as her abdominal wound was felt to be improved. This morning she did have some diarrhea. LFTs today are unchanged. She plans to go to [place] on Saturday. Erythematous macules and patches are more extensive on her face arms and also on her palms. Abdominal wound with packing it is otherwise clean and dry. Assessment: Urticaria and hepatitis, likely an adverse drug reaction to Bactrim. Plan: Return to the emergency department if getting ill or having fever. Also return if she has sores in the mouth or any blistering of her skin. Recheck LFTs on Saturday.
[2024-08-15 13:07] LABS: Hep A Ab, IgM Negative (Negative); Hep B Core Ab, IgM Negative (Negative); Hep B Surface Antigen Negative (Negative); Hep C Ab by CIA Interp Negative (Negative)
== END 2024-08-12 09:25 | disposition home or self-care (01) ==
PROVIDERS: Emergency Provider Emergency Medicine; PCP Family Medicine
DX: R21 Rash and other nonspecific skin eruption (principal); R94.5 Abnormal results of liver function studies
CPT/HCPCS: 36415; 80053; 80074; 85025; 94761; 96374; 99284; 99285; A9270; J1308; J2919; J7030

== ENCOUNTER 2024-08-13 08:59 | Outpatient (CLI) | payer MEDICAID, SELFPAY | END 2024-08-13 09:00 | disposition home or self-care (01) | LOC: WOUND 09:00 | PROVIDERS: PCP Family Medicine; Visit Provider Nurse Practitioner Family | DX: T81.42XA Infection following a procedure, deep incisional surgical site, initial encounter (principal); F32.2 Major depressive disorder, single episode, severe without psychotic features; Z98.51 Tubal ligation status | CPT/HCPCS: 11042; 36415; 80053; 85025; G0463 ==

== ENCOUNTER 2024-08-14 14:10 | Outpatient (CLI) | payer MEDICAID, SELFPAY | END 2024-08-14 14:11 | disposition home or self-care (01) | LOC: WOUND 14:10 | PROVIDERS: PCP Family Medicine; Visit Provider Nurse Practitioner Family | DX: T81.42XA Infection following a procedure, deep incisional surgical site, initial encounter (principal) | CPT/HCPCS: G0463 ==

== ENCOUNTER 2024-08-16 09:01 | Outpatient (CLI) | payer MEDICAID, SELFPAY ==
[2024-08-16 10:05] LABS: Albumin* 4.3 g/dL (3.3-5.0)
[2024-08-16 10:08] LABS: Alanine Aminotransferase* 102 U/L (4-35); Alkaline Phosphatase* 106 U/L (40-150); Aspartate Amino Transferase* 31 U/L (12-35); Bilirubin Total* 0.8 mg/dL (0.1-1.5); Total Protein* 6.5 g/dL (6.0-8.3)
== END 2024-08-16 09:02 | disposition home or self-care (01) ==
PROVIDERS: PCP Family Medicine; Visit Provider Family Medicine
DX: R74.01 Elevation of levels of liver transaminase levels (principal); R79.89 Other specified abnormal findings of blood chemistry
CPT/HCPCS: 36415; 80076

== ENCOUNTER 2024-08-24 15:31 | Outpatient (CLI) | payer MEDICAID, SELFPAY | END 2024-08-24 15:32 | disposition home or self-care (01) | LOC: WOUND 15:31 | PROVIDERS: PCP Family Medicine; Visit Provider Physician Assistant | DX: T81.42XA Infection following a procedure, deep incisional surgical site, initial encounter (principal); Z98.51 Tubal ligation status | CPT/HCPCS: 97597; 97605 ==

== ENCOUNTER 2024-08-26 15:37 | Outpatient (CLI) | payer MEDICAID, SELFPAY | END 2024-08-26 15:38 | disposition home or self-care (01) | LOC: WOUND 15:38 | PROVIDERS: PCP Family Medicine; Visit Provider Surgery | DX: T81.42XA Infection following a procedure, deep incisional surgical site, initial encounter (principal); Z98.51 Tubal ligation status | CPT/HCPCS: 97605 ==

== ENCOUNTER 2024-08-28 15:33 | Outpatient (CLI) | payer MEDICAID, SELFPAY | END 2024-08-28 15:34 | disposition home or self-care (01) | LOC: WOUND 15:33 | PROVIDERS: PCP Family Medicine; Visit Provider Nurse Practitioner Family | DX: T81.42XA Infection following a procedure, deep incisional surgical site, initial encounter (principal); Z98.51 Tubal ligation status | CPT/HCPCS: 97605 ==

== ENCOUNTER 2024-08-31 15:25 | Outpatient (CLI) | payer MEDICAID, SELFPAY | END 2024-08-31 15:26 | disposition home or self-care (01) | LOC: WOUND 15:25 | PROVIDERS: PCP Family Medicine; Visit Provider Physician Assistant | DX: T81.321A Disruption or dehiscence of closure of internal operation (surgical) wound of abdominal wall muscle or fascia, initial encounter (principal); Z98.51 Tubal ligation status | CPT/HCPCS: 97597; 97605 ==

== ENCOUNTER 2024-09-03 15:04 | Outpatient (CLI) | payer MEDICAID, SELFPAY | END 2024-09-03 15:05 | disposition home or self-care (01) | LOC: WOUND 15:04 | PROVIDERS: PCP Family Medicine; Visit Provider Physician Assistant | DX: T81.42XA Infection following a procedure, deep incisional surgical site, initial encounter (principal) | CPT/HCPCS: 97605 ==

== ENCOUNTER 2024-09-07 15:12 | Outpatient (CLI) | payer MEDICAID, SELFPAY | END 2024-09-07 15:13 | disposition home or self-care (01) | LOC: WOUND 15:12 | PROVIDERS: PCP Family Medicine; Visit Provider Physician Assistant Surgical | DX: T81.42XA Infection following a procedure, deep incisional surgical site, initial encounter (principal) | CPT/HCPCS: 11042 ==

== ENCOUNTER 2024-09-11 15:11 | Outpatient (CLI) | payer MEDICAID, SELFPAY | END 2024-09-11 15:12 | disposition home or self-care (01) | LOC: WOUND 15:11 | PROVIDERS: PCP Family Medicine; Visit Provider Nurse Practitioner Family | DX: T81.42XA Infection following a procedure, deep incisional surgical site, initial encounter (principal) | CPT/HCPCS: 97605 ==

== ENCOUNTER 2024-09-14 15:24 | Outpatient (CLI) | payer MEDICAID, SELFPAY | END 2024-09-14 15:25 | disposition home or self-care (01) | LOC: WOUND 15:24 | PROVIDERS: PCP Family Medicine; Visit Provider Physician Assistant Surgical | DX: T81.42XA Infection following a procedure, deep incisional surgical site, initial encounter (principal); Z98.51 Tubal ligation status | CPT/HCPCS: 11042; 97605 ==

== ENCOUNTER 2024-09-21 15:08 | Outpatient (CLI) | payer MEDICAID, SELFPAY | END 2024-09-21 15:09 | disposition home or self-care (01) | LOC: WOUND 15:08 | PROVIDERS: PCP Family Medicine; Visit Provider Physician Assistant | DX: T81.42XA Infection following a procedure, deep incisional surgical site, initial encounter (principal); B37.2 Candidiasis of skin and nail; Z98.51 Tubal ligation status | CPT/HCPCS: 97597 ==

== ENCOUNTER 2024-09-28 15:23 | Outpatient (CLI) | payer MEDICAID, SELFPAY | END 2024-09-28 15:24 | disposition home or self-care (01) | PROVIDERS: PCP Family Medicine; Visit Provider Physician Assistant Surgical | DX: T81.42XA Infection following a procedure, deep incisional surgical site, initial encounter (principal); Z98.51 Tubal ligation status; B37.2 Candidiasis of skin and nail | CPT/HCPCS: 11042 ==

== ENCOUNTER 2024-10-05 14:14 | Outpatient (CLI) | payer MEDICAID, SELFPAY | END 2024-10-05 14:15 | disposition home or self-care (01) | LOC: WOUND 14:14 | PROVIDERS: PCP Family Medicine; Visit Provider Physician Assistant Surgical | DX: T81.42XA Infection following a procedure, deep incisional surgical site, initial encounter (principal); Z98.51 Tubal ligation status | CPT/HCPCS: 11042; 87070; 87186; G0463 ==

== ENCOUNTER 2024-10-12 15:05 | Outpatient (CLI) | payer MEDICAID, SELFPAY | END 2024-10-12 15:06 | disposition home or self-care (01) | LOC: WOUND 15:05 | PROVIDERS: PCP Family Medicine; Visit Provider Family Medicine | DX: T81.31XA Disruption of external operation (surgical) wound, not elsewhere classified, initial encounter (principal); Z98.51 Tubal ligation status | CPT/HCPCS: 11042 ==

== ENCOUNTER 2024-10-19 15:10 | Outpatient (CLI) | payer MEDICAID, SELFPAY | END 2024-10-19 15:11 | disposition home or self-care (01) | PROVIDERS: PCP Family Medicine; Visit Provider Physician Assistant | DX: T81.31XA Disruption of external operation (surgical) wound, not elsewhere classified, initial encounter (principal); Z98.51 Tubal ligation status | CPT/HCPCS: 97597 ==

== ENCOUNTER 2024-10-26 15:34 | Outpatient (CLI) | payer MEDICAID, SELFPAY | END 2024-10-26 15:35 | disposition home or self-care (01) | LOC: WOUND 15:34 | PROVIDERS: PCP Family Medicine; Visit Provider Physician Assistant | DX: T81.31XA Disruption of external operation (surgical) wound, not elsewhere classified, initial encounter (principal); Z98.51 Tubal ligation status | CPT/HCPCS: 97597 ==

== ENCOUNTER 2024-11-03 14:54 | Outpatient (CLI) | payer BC, SELFPAY | END 2024-11-03 14:55 | disposition home or self-care (01) | LOC: WOUND 14:54 | PROVIDERS: PCP Family Medicine; Visit Provider Nurse Practitioner Family | DX: T81.31XA Disruption of external operation (surgical) wound, not elsewhere classified, initial encounter (principal); Z98.51 Tubal ligation status | CPT/HCPCS: 11042 ==

== ENCOUNTER 2024-11-05 15:05 | Outpatient (CLI) | payer BC, SELFPAY | END 2024-11-05 15:06 | disposition home or self-care (01) | LOC: WOUND 15:05 | PROVIDERS: PCP Family Medicine; Visit Provider Nurse Practitioner Family | DX: T81.31XA Disruption of external operation (surgical) wound, not elsewhere classified, initial encounter (principal) | CPT/HCPCS: G0463 ==

== ENCOUNTER 2024-11-09 07:54 | Outpatient (CLI) | payer BC, SELFPAY ==
--- NOTE | 2024-11-09 08:15 | CRLHL7_ITS ---
For Patients: As a result of the Century Cures Act, medical imaging exams and procedure reports are released immediately into your electronic medical record. You may view this report before your referring provider. If you have questions, please contact your health care provider. Indication: Tubal reversal, fertility evaluation Technique: Routine hysterosalpingogram. Fluoroscopic time 42 seconds. IMPRESSION: Endometrial cavity distended with 20 cc of contrast. Right endometrial tube is somewhat diminutive but patent with spillage into the right peritoneal cavity. Nonvisualization of the left fallopian tube. Dictated by Fernando Ford MD @ 11/09/2024 10:36:55 AM (Electronically Signed)
--- NOTE | 2024-11-09 08:33 | W.PM.GYNPROC ---
Procedure Note Time Seen by Provider: 08:33 Date of procedure: 11/09/24 Will [facility] bill your pro fee for this procedure?: Yes Procedure Description: R/B/A review and consent signed. Emphasized risk of infection is rare, less than 1%. Higher risk of tubes are blocked. Allergic reaction to the dye is also rare. You may have spotting for 1-2 days afterwards. Radiation exposure is very low in considered safe for this diagnostic purpose. DATE: 11/09/24 PREPROCEDURE DIAGNOSIS: 1. History of tubal ligation reversal in [place] 2. S/p wound infection after tubal reversal surgery POSTPROCEDURE DIAGNOSIS: 1. Same 2. Blocked left fallopian tube 3. Abnormal, slow spill of right fallopian tube NAME OF PROCEDURE: Hysterosalpingogram. ANESTHESIA: None. COMPLICATIONS: None. PROCEDURE: After obtaining verbal consent, the patient was placed in the dorsal lithotomy position on the x-ray table. An open-sided bivalve speculum was introduced into the vagina and the cervix easily visualized. The cervix and vagina were then prepped with Betadine. Os binder/cervical dilator used: No. A balloon tipped double-lumen catheter was then gently inserted through the cervical opening into the uterine cavity to the level of the fundus. The balloon was insufflated with 3 mL of air. The speculum was removed. The patient was repositioned in the supine position, covered, and the radiologist was called to the room. A hysterosalpingogram was then performed. A total of 30 cc of Optiray 300 water soluble contrast dye was injected through the double-lumen catheter under moderate pressure. Findings as noted above. The balloon was deflated. The catheter was removed. The patient tolerated the procedure well, though she did have moderate cramping discomfort during and just after the procedure. Counseled patient that left fallopian tube continues to be blocked. Thus, tubal reversal was unsuccessful on the left side. She's also at high risk for ectopic from abnormal right fallopian tube which can risk her life. Medically I recommend caution and she can have consult with [facility] to explore IVF. She still has ongoing wound care. Emphasize avoiding until wound is completely healed. She was discharged to home in stable condition and make an appointment with her physician to review all of her lab results and procedure results.
== END 2024-11-09 07:55 | disposition home or self-care (01) ==
LOC: RAD 07:55
PROVIDERS: Visit Provider Obstetrics & Gynecology
DX: N97.1 Female infertility of tubal origin (principal)
CPT/HCPCS: 58340; 74740; A4649; Q9967

== ENCOUNTER 2024-11-09 15:23 | Outpatient (CLI) | payer BC, SELFPAY | END 2024-11-09 15:24 | disposition home or self-care (01) | LOC: WOUND 15:24 | PROVIDERS: Visit Provider Physician Assistant Surgical | DX: T81.31XA Disruption of external operation (surgical) wound, not elsewhere classified, initial encounter (principal); N97.1 Female infertility of tubal origin; F32.2 Major depressive disorder, single episode, severe without psychotic features | CPT/HCPCS: 11042; 58340; 74740; A4649; Q9967 ==

== ENCOUNTER 2024-11-16 15:36 | Outpatient (CLI) | payer BC, SELFPAY | END 2024-11-16 15:37 | disposition home or self-care (01) | LOC: WOUND 15:36 | PROVIDERS: Visit Provider Physician Assistant Surgical | DX: T81.31XA Disruption of external operation (surgical) wound, not elsewhere classified, initial encounter (principal); B37.2 Candidiasis of skin and nail; Z98.51 Tubal ligation status; F32.2 Major depressive disorder, single episode, severe without psychotic features | CPT/HCPCS: 11042 ==

== ENCOUNTER 2024-11-23 15:19 | Outpatient (CLI) | payer BC, SELFPAY | END 2024-11-23 15:20 | disposition home or self-care (01) | LOC: WOUND 15:19 | PROVIDERS: Visit Provider Physician Assistant Surgical | DX: T81.31XA Disruption of external operation (surgical) wound, not elsewhere classified, initial encounter (principal); Z98.51 Tubal ligation status | CPT/HCPCS: 11042 ==

== ENCOUNTER 2024-11-30 15:04 | Outpatient (CLI) | payer BC, SELFPAY | END 2024-11-30 15:05 | disposition home or self-care (01) | LOC: WOUND 15:04 | PROVIDERS: Visit Provider Physician Assistant Surgical | DX: T81.31XA Disruption of external operation (surgical) wound, not elsewhere classified, initial encounter (principal); Z98.51 Tubal ligation status | CPT/HCPCS: 11042 ==

== ENCOUNTER 2024-12-08 14:15 | Outpatient (CLI) | payer BC, SELFPAY | END 2024-12-08 14:16 | disposition home or self-care (01) | LOC: WOUND 14:16 | PROVIDERS: Visit Provider Nurse Practitioner Family | DX: T81.31XA Disruption of external operation (surgical) wound, not elsewhere classified, initial encounter (principal); Z98.51 Tubal ligation status | CPT/HCPCS: G0463 ==